=== PATIENT | female | born 1975 | race Hispanic/Latino ===

== ENCOUNTER 2016-08-28 14:32 | Observation (INO) | payer OTHER ==
[2016-08-28 14:55] VITALS: BMI 20.7
[2016-08-28] MEDS ORDERED: Sodium Chloride 0.9% 1,000 ML IV STA (15:04)
[2016-08-28] MEDS ORDERED: Morphine 4 mg/ml ISec IVP STA (15:05)
--- NOTE | 2016-08-28 15:08 | ED PDOC ---
"Arrival/HPI - General Historian: Patient <Zenon Marks - Last Filed: 09/04/16 14:52> <Brina Acosta - Last Filed: 09/07/16 11:08> - General Time Seen by Provider: 08/28/16 14:55 - History of Present Illness Narrative History of Present Illness (Text): 08/28/16 15:00 41 year old female, pmh including chronic pancreatitis/cholecystitis ( cholecystotomy), allergic to macrolids/levaquin/contrast/nsaid, chronic smoker, psychiatric history of drug abuse, complaining of epigastric and lt. upper quadrant pain for the past 2 days with nausea and vomiting. Pt. stated that it started from the epigastric region with lt. upper quadrant region, feels like her usual pancreatitis, associated with nausea and non-bilious/non-bloody vomiting, no chest pain or shortness of breath, no palpitation, no dizziness, no numbness or tingling, no other medical or psychological complaints. (Zenon Marks) Past Medical History - Provider Review Nursing Documentation Reviewed: Yes - Infectious Disease Hx of Infectious Diseases: None - Tetanus Immunization Tetanus Immunization: Unknown - Reproductive Menopause: No - Cardiac Hx Cardiac Disorders: No - Pulmonary Hx Bronchitis: Yes Hx Pneumonia: Yes - Neurological Hx Migraine: Yes Hx Seizures: Yes - HEENT Hx HEENT Disorder: No - Renal Hx Renal Disorder: Yes Hx Kidney Stones: Yes - Endocrine/Metabolic Hx Endocrine Disorders: Yes Hx Diabetes Mellitus Type 2: Yes - Hematological/Oncological Hx Anemia: Yes - Integumentary Hx Dermatological Disorder: Yes Hx Eczema: Yes - Musculoskeletal/Rheumatological Hx Arthritis: Yes Hx Fractures: Yes - Gastrointestinal Hx Pancreatitis: Yes - Genitourinary/Gynecological Hx Genitourinary Disorders: Yes Hx Urinary Tract Infection: Yes - Psychiatric Hx Anxiety: Yes Hx Substance Use: No - Surgical History Hx Appendectomy: Yes Hx Cholecystectomy: Yes - Anesthesia Hx Anesthesia: Yes Hx Anesthesia Reactions: No Hx Malignant Hyperthermia: No <Zenon Marks - Last Filed: 09/04/16 14:52> Family/Social History - Physician Review Nursing Documentation Reviewed: Yes Family/Social History: Unknown Family HX Smoking Status: Current Some Days Smoker Hx Alcohol Use: No Hx Substance Use: No <Zenon Marks - Last Filed: 09/04/16 14:52> Allergies/Home Meds <Marks,Zenon Q - Last Filed: 09/04/16 14:52> <KarlaTonnysulema - Last Filed: 09/07/16 11:08> Allergies/Adverse Reactions: Allergies clarithromycin [From Biaxin] Allergy (Verified 08/28/16 15:01) ANAPHYLAXIS Iodinated Contrast Media - Oral and [Iodinated Contrast Media - IV Dye] Allergy (Verified 08/28/16 15:01) ANAPHYLAXIS levofloxacin [From Levaquin] Allergy (Verified 08/28/16 15:01) ANAPHYLAXIS NSAIDS (Non-Steroidal Anti-Inflamma Allergy (Verified 08/28/16 15:01) ANAPHYLAXIS tizanidine HCl [From Zanaflex] Allergy (Verified 08/28/16 15:01) ANAPHYLAXIS Home Medications: Home Meds Medication Instructions Recorded Confirmed Morphine [MS Contin] 60 mg PO BID 08/28/16 08/28/16 Codeine/Butalbital/ASA/Caffein 1 tab PO Q4H PRN 08/30/16 08/30/16 [Fiorinal with Codeine #3 Cap] Hydromorphone HCl [Dilaudid] 8 mg PO Q4H PRN 08/30/16 08/30/16 LORazepam [Ativan] 1 mg PO TID 08/30/16 08/30/16 Pregabalin [Lyrica] 300 mg PO DAILY 08/30/16 08/30/16 Review of Systems - Review of Systems Constitutional: absent: Fatigue, Fevers Eyes: absent: Vision Changes ENT: absent: Hearing Changes Respiratory: absent: SOB, Cough, Sputum Cardiovascular: absent: Chest Pain, Palpitations Gastrointestinal: Abdominal Pain, Nausea, Vomiting. absent: Diarrhea Musculoskeletal: absent: Arthralgias, Back Pain Skin: absent: Rash, Pruritis, Skin Lesions Neurological: absent: Headache, Dizziness, Focal Weakness Endocrine: absent: Diaphoresis <Zenon Marks - Last Filed: 09/04/16 14:52> Physical Exam Vital Signs Reviewed: Yes Temperature: Afebrile Pulse: Regular Respiratory Rate: Normal Appearance: Positive for: Well-Appearing, Non-Toxic, Uncomfortable Pain Distress: Severe Mental Status: Positive for: Alert and Oriented X 3 - Systems Exam Head: Present: Atraumatic, Normocephalic Pupils: Present: PERRL Extroacular Muscles: Present: EOMI Conjunctiva: Present: Normal Mouth: Present: Moist Mucous Membranes Neck: Present: Normal Range of Motion Respiratory/Chest: Present: Clear to Auscultation, Good Air Exchange. No: Respiratory Distress, Accessory Muscle Use, Wheezes, Retracting, Rhonchi, Tachypneic Cardiovascular: Present: Regular Rate and Rhythm, Normal S1, S2. No: Murmurs Abdomen: Present: Tenderness (epigastric and LUQ tenderness, no flank discoloration. ), Normal Bowel Sounds. No: Distention, Peritoneal Signs Back: Present: Normal Inspection, CVA Tenderness (lt. cva) Upper Extremity: Present: Normal Inspection. No: Cyanosis, Edema Lower Extremity: Present: Normal Inspection. No: Edema Neurological: Present: GCS=15, Speech Normal, Motor Func Grossly Intact, Memory Normal Skin: Present: Warm, Dry, Normal Color. No: Rashes Lymphatic: No: Cervical Adenopathy Psychiatric: Present: Alert, Oriented x 3, Normal Insight, Normal Concentration <Zenon Marks - Last Filed: 09/04/16 14:52> Medical Decision Making - Lab Interpretations I have reviewed the lab results: Yes - RAD Interpretation Dairy Husbandman: Radiologist - EKG Interpretation Interpreted by ED Physician: Yes Type: 12 lead EKG <Zenon Marks - Last Filed: 09/04/16 14:52> <Brina Acosta - Last Filed: 09/07/16 11:08> ED Course and Treatment: 08/28/16 15:06 -labs/ua/lipase -CT abdomen and pelvis (allergic to IV and po contrast) -Chest x-ray -EKG -IVF/reglan/pepcid/morphine 4mg -Observe and reassess 08/28/16 18:40 -EKG: NSR @ 62 BPM, no ST elevation or depression, T wave inversion noted on the lead V2. -Chest x-ray show no active disease -CT abdomen and pelvis:no acute findings -Labs are non-significant except lipase 303 and Urinalysis show +UTI with lt. cva tenderness. -Pain limited relief with the morphine 4mg, then dilaudid 1mg IV ordered. -Pt. is unable to tolerate the po, will admit for the observation tonight with IV antibiotic 08/28/16 19:28 -I discussed the case with the night covering doctor for the hospitalist Dr. Spear and the resident, they will follow up the care for the patient. (Zenon Marks) - Lab Interpretations Lab Results: 08/28/16 18:00 08/28/16 18:00 Lab Results 08/28/16 18:00: Troponin I < 0.01 08/28/16 18:00: Sodium 139, Potassium 4.0, Chloride 106, Carbon Dioxide 21, Anion Gap 16, BUN 15, Creatinine 0.5, Est GFR ( Amer) > 60, Est GFR (Non- Af Amer) > 60, Random Glucose 75, Calcium 8.6, Total Bilirubin 0.9, AST 26, ALT 25, Alkaline Phosphatase 92, Total Protein 7.1, Albumin 4.1, Globulin 3.0, Albumin/Globulin Ratio 1.4, Lipase 303 H 08/28/16 18:00: WBC 4.2 L D, RBC 4.19, Hgb 12.2, Hct 35.7 L, MCV 85.2, MCH 29.1 , MCHC 34.2, RDW 14.6 H, Plt Count 173, MPV 10.1, Gran % 63.5, Lymph % (Auto) 28.0, [place] % (Auto) 7.8 H, Eos % (Auto) 0.2 L, Baso % (Auto) 0.5, Gran # 2.67, Lymph # 1.2, [place] # 0.3, Eos # 0.0, Baso # 0.02 08/28/16 15:00: Urine Color Yellow, Urine Appearance Clear, Urine pH 6.0, Ur Specific [place] >= 1.030, Urine Protein 30 H, Urine Glucose (UA) Negative, Urine Ketones >=80, Urine Blood Negative, Urine Nitrate Negative, Urine Bilirubin Moderate H, Urine Urobilinogen 1.0 H, Ur Leukocyte Esterase Small H, Urine RBC 0 - 2, Urine WBC 5 - 10, Ur Epithelial Cells Many, Amorphous Sediment Few, Urine Bacteria Many, Urine Other Uyeast, Urine HCG, Qual Negative - RAD Interpretation Radiology Orders: 08/28/16 15:04 ABD & PELVIS W/O PO OR IV CONT [CT] Stat 08/28/16 15:05 CHEST PORTABLE [RAD] Stat Chest x-ray: no significant interval changes. CT Abdomen and pelvis: ABDOMEN: Liver: Unremarkable. Gallbladder and bile ducts: There has been a cholecystectomy. No ductal dilation. Pancreas: Unremarkable. No ductal dilation. Spleen: Unremarkable. No splenomegaly. Adrenals: Unremarkable. No mass. Kidneys and ureters: Unremarkable. No obstructing stones. No hydronephrosis. Stomach and bowel: Colonic diverticula are present although there are no CT findings to suggest diverticulitis. No obstruction. Appendix: There has been an appendectomy. DELORES STEPHENSON | Preliminary Radiology Report STATION CHIEF (QA) DISCREPANCY? If there is a discrepancy between the preliminary and final interpretation, please notify [place] via [email or web address]. If you do not have access to our QA portal, call our QA team at [phone] CONFIDENTIALITY STATEMENT This report is intended only for the use of the referring physician, and only in accordance with law, If you received this in error, call [phone] Page 2 of 2 PELVIS: Bladder: Unremarkable. No stones. Reproductive: Unremarkable as visualized. ABDOMEN and PELVIS: Intraperitoneal space: Unremarkable. No free air. No significant fluid collection. Bones/joints: There is avascular necrosis of the left femoral head. No acute fracture. No dislocation. Soft tissues: Unremarkable. Vasculature: Unremarkable. No abdominal aortic aneurysm. Lymph nodes: Unremarkable. No enlarged lymph nodes. IMPRESSION: No acute findings. Thank you for allowing us to participate in the care of your patient. Dictated and Authenticated by: Rayshawn Bermudez MD 08/28/2016 5:43 PM Eastern Time ([place] & [place]) (Zenon Marks) - EKG Interpretation EKG Interpretation (Text): 08/28/16 17:13 EKG: NSR @ 62 BPM, no ST elevation or depression, T wave inversion noted on the lead V2. (Zenon Marks) - Medication Orders Current Medication Orders: Discontinued Medications Famotidine (Pepcid) 20 mg IVP STAT STA Stop: 08/28/16 15:05 Last Admin: 08/28/16 15:19 Dose: 20 mg Heparin Sodium (Porcine) (Heparin) 5,000 units SC Q12 BELLA PRN Reason: Protocol Last Admin: 08/31/16 10:43 Dose: 5,000 units Hydromorphone HCl (Dilaudid) 1 mg IVP STAT STA Stop: 08/28/16 18:03 Last Admin: 08/28/16 18:21 Dose: 1 mg Hydromorphone HCl (Dilaudid) 0.5 mg IVP Q6H PRN PRN Reason: Pain, severe (8-10) Last Admin: 08/30/16 10:34 Dose: 0.5 mg Re-Assess: [facility] Pain Assessment Document 08/30/16 11:34 KP (Rec: 08/30/16 12:23 [id number] Pain Reassessment Is this a pain reassessment? Yes Sleep Is patient sleeping during reassessment? No Presence of Pain Presence of Pain No Hydromorphone HCl (Dilaudid) 0.5 mg IVP Q4H PRN PRN Reason: Pain, severe (8-10) Last Admin: 08/30/16 14:35 Dose: 0.5 mg Re-Assess: [facility] Pain Assessment Document 08/30/16 15:35 KP (Rec: 08/30/16 16:36 [facility] [id number] Pain Reassessment Is this a pain reassessment? Yes Sleep Is patient sleeping during reassessment? No Presence of Pain Presence of Pain No Hydromorphone HCl (Dilaudid) 1 mg PO Q6 PRN PRN Reason: Pain, severe (8-10) Last Admin: 08/31/16 10:42 Dose: 1 mg Sodium Chloride (Sodium Chloride 0.9%) 1,000 mls @ 999 mls/hr IV .Q1H1M STA Stop: 08/28/16 16:04 Last Admin: 08/28/16 15:17 Dose: 999 mls/hr Ceftriaxone Sodium (Rocephin 1 Gram Ivpb) 1 gm in 100 mls @ 200 mls/hr IVPB STAT STA PRN Reason: Protocol Stop: 08/28/16 19:06 Last Admin: 08/28/16 18:50 Dose: 200 mls/hr Lactated Ringer's (Lactated Ringer's) 1,000 mls @ 150 mls/hr IV .Q6H40M [facility] Last Admin: 08/29/16 15:53 Dose: 150 mls/hr Ceftriaxone Sodium (Rocephin 1 Gram Ivpb) 1 gm in 100 mls @ 100 mls/hr IVPB DAILY BELLA PRN Reason: Protocol Last Admin: 08/30/16 09:20 Dose: 100 mls/hr Lactated Ringer's (Lactated Ringer's) 1,000 mls @ 75 mls/hr IV .[id number] [facility] Last Admin: 08/30/16 12:23 Dose: 75 mls/hr Lorazepam (Ativan) 2 mg IVP Q6H PRN; Protocol PRN Reason: Anxiety Last Admin: 08/31/16 08:22 Dose: 2 mg Re-Assess: Reassess Psych Meds Document 08/31/16 08:52 KRISTA (Rec: 08/31/16 10:39 AJ [id number]) Reassess Psych Med Effective Lorazepam (Ativan) 1 mg PO TID PRN; Protocol PRN Reason: Anxiety Last Admin: 08/31/16 13:36 Dose: 1 mg Metoclopramide HCl (Reglan) 10 mg IVP STAT STA Stop: 08/28/16 15:05 Last Admin: 08/28/16 15:19 Dose: 10 mg Morphine Sulfate (Morphine) 4 mg IVP STAT STA Stop: 08/28/16 15:06 Last Admin: 08/28/16 15:18 Dose: 4 mg Re-Assess: [facility] Pain Assessment Document 08/28/16 16:18 NORMA (Rec: 08/28/16 16:50 SZA [id number]) Pain Reassessment Is this a pain reassessment? Yes Morphine Sulfate (Morphine) 4 mg IVP Q4H PRN PRN Reason: Pain, severe (8-10) Last Admin: 08/29/16 13:12 Dose: 4 mg Morphine Sulfate (Morphine) 2 mg IVP STAT STA Stop: 08/30/16 01:50 Last Admin: 08/30/16 01:56 Dose: 2 mg Re-Assess: [facility] Pain Assessment Document 08/30/16 02:56 IMT (Rec: 08/30/16 05:14 IMT [id number]) Pain Reassessment Is this a pain reassessment? Yes Sleep Is patient sleeping during reassessment? Yes Morphine Sulfate (Morphine Extended Release Tab) 60 mg PO BID [facility] Last Admin: 08/30/16 17:50 Dose: 60 mg Morphine Sulfate (Morphine Extended Release Tab) 60 mg PO STAT STA Stop: 08/30/16 22:44 Last Admin: 08/30/16 22:52 Dose: 60 mg Nicotine (Nicoderm Cq) 1 patch TD DAILY [facility] Last Admin: 08/31/16 10:43 Dose: 1 patch Ondansetron HCl (Zofran Inj) 4 mg IVP Q4H PRN PRN Reason: Nausea/Vomiting Pantoprazole Sodium (Protonix Inj) 40 mg IVP Q12 [facility] Last Admin: 08/30/16 09:20 Dose: 40 mg Pantoprazole Sodium (Protonix Ec Tab) 40 mg PO 0730,1630 [facility] Last Admin: 08/31/16 08:22 Dose: 40 mg Potassium Chloride (K-Dur 20 Meq Er Tab) 40 meq PO ONCE ONE Stop: 08/30/16 09:38 Last Admin: 08/30/16 10:23 Dose: 40 meq Potassium Chloride (K-Dur 20 Meq Er Tab) 40 meq PO STAT STA Stop: 08/31/16 09:08 Last Admin: 08/31/16 10:42 Dose: 40 meq Pregabalin (Lyrica) 300 mg PO DAILY [facility] Last Admin: 08/31/16 10:43 Dose: 300 mg Zolpidem Tartrate (Ambien) 10 mg PO STAT STA PRN Reason: Protocol Stop: 08/30/16 22:43 Last Admin: 08/30/16 22:53 Dose: 10 mg - PA / BARBERING TEACHER / Resident Statement / has reviewed & agrees with the documentation as recorded. <Zenon Marks - Last Filed: 09/04/16 14:52> - PA / BARBERING TEACHER / Resident Statement / has reviewed & agrees with the documentation as recorded. / has examined the patient and agrees with the treatment plan. <Brina Acosta - Last Filed: 09/07/16 11:08> Disposition/Present on Arrival - Present on Arrival Any Indicators Present on Arrival: No History of DVT/PE: No History of Uncontrolled Diabetes: No Urinary Catheter: No History of Decub. Ulcer: No History Surgical Site Infection Following: None - Disposition Have Diagnosis and Disposition been Completed?: Yes Disposition Time: 18:41 Patient Plan: Admission, Observation <Zenon Marks - Last Filed: 09/04/16 14:52> <Brina Acosta - Last Filed: 09/07/16 11:08> - Disposition Diagnosis: Pyelonephritis, Pancreatitis, Nausea and vomiting Disposition: HOSPITALIZED Condition: STABLE"
[2016-08-28 15:38] LABS: URINE BILIRUBIN MODERATE (NEGATIVE); URINE BLOOD NEGATIVE (NEGATIVE); URINE GLUCOSE (UA) NEGATIVE (NEGATIVE); URINE KETONE >=80 mg/dL (NEGATIVE); URINE LEUKOCYTE ESTERASE SMALL Leu/uL (NEGATIVE); URINE PROTEIN 30 mg/dL (<30 mg/dL)
[2016-08-28 15:39] LABS: URINE APPEARANCE CLEAR (CLEAR); URINE COLOR YELLOW (YELLOW)
[2016-08-28 15:45] LABS: URINE AMORPHOUS SEDIMENT FEW; URINE BACTERIA MANY (NEG); URINE EPITHELIAL CELLS MANY /hpf (0-5); URINE RBC 0 - 2 /hpf (0-2)
--- NOTE | 2016-08-28 17:05 | RAD ---
HISTORY: lt. upper quadrant abdominal pain COMPARISON: 09/06/2015 FINDINGS: LUNGS: No focal airspace opacity. PLEURA: No significant pleural effusion identified, no pneumothorax apparent. CARDIOVASCULAR: Normal. OSSEOUS STRUCTURES: No significant abnormalities. VISUALIZED UPPER ABDOMEN: Normal. OTHER FINDINGS: Curvilinear metallic densities noted in the lower chest. IMPRESSION: No focal airspace opacity. No significant interval change.
[2016-08-28] MEDS ORDERED: HYDROmorphone 1 mg/ml ISec IVP STA (18:02)
[2016-08-28 18:13] LABS: ADD MANUAL DIFF? NO
[2016-08-28 18:25] LABS: BASO # 0.02 K/mm3 (0.0-2.0); BASO % 0.5 % (0.0-3.0); EOS % 0.2 % (1.5-5.0); GRAN # 2.67 (1.4-6.5); GRAN % 63.5 % (50.0-68.0); HEMATOCRIT 35.7 % (36.0-48.0); LYMPH # 1.2 (1.2-3.4); MEAN CELL VOLUME 85.2 fL (80.0-105.0); MEAN CORPUSCULAR HEMOGLOBIN 29.1 pg (25.0-35.0); MEAN CORPUSCULAR HGB CONC 34.2 g/dl (31.0-37.0); MEAN PLATELET VOLUME 10.1 fl (7.0-11.0); MONO # 0.3 (0.1-0.6); MONO % 7.8 % (1.0-6.0); PLATELET COUNT 173 10^3/uL (120.0-450.0); RED CELL DISTRIBUTION WIDTH 14.6 % (11.5-14.5); WHITE BLOOD COUNT 4.2 10^3/ul (4.5-11.0)
[2016-08-28 18:26] LABS: ALB/GLOB RATIO 1.4 (1.1-1.8); ALKALINE PHOSPHATASE 92 U/L (38-133); ALT/SGPT 25 U/L (7-56); AST/SGOT 26 U/L (15-39); BILIRUBIN,TOTAL 0.9 mg/dL (0.2-1.3); BLOOD UREA NITROGEN 15 mg/dL (7-21); CALCIUM 8.6 mg/dL (8.4-10.5); CARBON DIOXIDE 21 mmol/L (21-33); CHLORIDE 106 mmol/L (98-107); GFR AFRICAN-AMERICAN > 60; GLUCOSE,RANDOM 75 mg/dL (70-110); LIPASE 303 U/L (23-300); SODIUM 139 mmol/L (132-148); TOTAL PROTEIN 7.1 g/dL (5.8-8.3)
[2016-08-28] MEDS ORDERED: cefTRIAXone 1 gm 1 GM/100 ML BAG IVPB STA (18:37)
[2016-08-28] MEDS: Lactated Ringer's 1,000 ML IV SCH (20:30)
--- NOTE | 2016-08-28 21:03 | CP.PCM.HP ---
<Arron Clements - Last Filed: 08/28/16 21:22> History of Present Illness - History of Present Illness History of Present Illness: 41 y/o F with PMH of chronic pancreatitis and alcohol abuse presents to the ED for 2 day history of abdominal pain. Pt states pain started suddenly when she woke up at home 2 days ago. She states the pain is an 8/10 and is constant. She describes the pain as stabbing in nature. The pain radiates to her middle back. Pt also admits lower left abdominal pain that radiates around to her back. Pt also states during this time she has experienced multiple bouts of nausea and vomiting. Vomiting is nonbilious, nonbloody. Pt also admits to have several episodes of diarrhea, nonbloody throughout this time. Pt states she took her normal medication at home for the pain and symptoms, but it did not help. Pt admits to several pancreatic surgeries in the past due to having gallstone pancreatitis. Pt states she has not had any alcohol or tobacco use recently and has quit a long time ago. Admits to chest pain. Denies SOB, fever, chills, headaches, sick contacts, dizziness. PMH: Chronic pancreatitis, alcohol abuse Surgical Hx: Cholecystectomy, multiple pancreatic surgeries Family Hx: Unremarkable Social Hx: Former smoker, former alcohol abuser, denies illicit drug use. Allergies: Clarithromycin, IV contrast, Levaquin (Fluoroquinolones), NSAIDs, Tizanidine Medication: Ativan, Pancreatic enzymes, Morphine, Lyrica Present on Admission - Present on Admission Any Indicators Present on Admission: No Review of Systems - Constitutional Constitutional: absent: Chills, Fatigue, Fever - EENT Eyes: absent: Blurred Vision, Change in Vision Nose/Mouth/Throat: absent: Nasal Congestion, Nasal Discharge - Cardiovascular Cardiovascular: Chest Pain. absent: Irregular Heart Rhythm - Respiratory Respiratory: absent: Cough, Dyspnea - Gastrointestinal Gastrointestinal: Abdominal Pain, Diarrhea, Vomiting - Genitourinary Genitourinary: absent: Difficulty Urinating, Dysuria, Hematuria - Neurological Neurological: absent: Numbness, Syncope, Tingling - Hematologic/Lymphatic Hematologic: absent: Easy Bleeding, Easy Bruising Past Patient History - Infectious Disease Hx of Infectious Diseases: None - Tetanus Immunizations Tetanus Immunization: Unknown - Past Medical History & Family History Past Medical History?: Yes - Past Social History Smoking Status: Current Some Days Smoker - CARDIAC Hx Cardiac Disorders: No - PULMONARY Hx Bronchitis: Yes Hx Pneumonia: Yes - NEUROLOGICAL Hx Migraine: Yes Hx Seizures: Yes - HEENT Hx HEENT Problems: No - RENAL Hx Chronic Kidney Disease: Yes Hx Kidney Stones: Yes - ENDOCRINE/METABOLIC Hx Endocrine Disorders: Yes Hx Diabetes Mellitus Type 2: Yes - HEMATOLOGICAL/ONCOLOGICAL Hx Anemia: Yes - INTEGUMENTARY Hx Dermatological Problems: Yes Hx Eczema: Yes - MUSCULOSKELETAL/RHEUMATOLOGICAL Hx Arthritis: Yes Hx Fractures: Yes - GASTROINTESTINAL Hx Pancreatitis: Yes - GENITOURINARY/GYNECOLOGICAL Hx Genitourinary Disorders: Yes Hx Urinary Tract Infection: Yes - PSYCHIATRIC Hx Anxiety: Yes Hx Substance Use: No - SURGICAL HISTORY Hx Appendectomy: Yes Hx Cholecystectomy: Yes - ANESTHESIA Hx Anesthesia: Yes Hx Anesthesia Reactions: No Hx Malignant Hyperthermia: No Meds Allergies/Adverse Reactions: Allergies Allergy/AdvReac Type Severity Reaction Status Date / Time clarithromycin [From Biaxin] Allergy ANAPHYLAXIS Verified 08/28/16 15:01 Iodinated Contrast Media - Allergy ANAPHYLAXIS Verified 08/28/16 15:01 Oral and [Iodinated Contrast Media - IV Dye] levofloxacin [From Levaquin] Allergy ANAPHYLAXIS Verified 08/28/16 15:01 NSAIDS (Non-Steroidal Allergy ANAPHYLAXIS Verified 08/28/16 15:01 Anti-Inflamma tizanidine HCl Allergy ANAPHYLAXIS Verified 08/28/16 15:01 [From Zanaflex] Physical Exam - Constitutional Appears: Non-toxic, No Acute Distress - Head Exam Head Exam: ATRAUMATIC, NORMAL INSPECTION, NORMOCEPHALIC - Eye Exam Eye Exam: EOMI, Normal appearance - ENT Exam ENT Exam: Mucous Membranes Moist, Normal Exam - Neck Exam Neck exam: Positive for: Normal Inspection. Negative for: Lymphadenopathy - Respiratory Exam Respiratory Exam: Clear to Auscultation Bilateral, NORMAL BREATHING PATTERN. absent: Rhonchi, Wheezes - Cardiovascular Exam Cardiovascular Exam: RRR, +S1, +S2 - GI/Abdominal Exam GI & Abdominal Exam: Normal Bowel Sounds, Soft, Tenderness (Left lower quadrant , mild tenderness in epigastric region) - Extremities Exam Extremities exam: Positive for: normal inspection. Negative for: calf tenderness, pedal edema - Back Exam Back exam: CVA tenderness (L). absent: CVA tenderness (R) - Neurological Exam Neurological exam: Alert, CN II-XII Intact, Oriented x3 - Psychiatric Exam Psychiatric exam: Normal Affect, Normal Mood - Skin Skin Exam: Intact, Normal Color, Warm Results - Vital Signs Recent Vital Signs: Last Vital Signs Temp 98.8 F 08/28/16 14:53 Pulse 62 08/28/16 19:33 Resp 14 08/28/16 19:33 BP 145/90 08/28/16 19:33 Pulse Ox 99 08/28/16 19:33 - Labs Result Diagrams: 08/28/16 18:00 08/28/16 18:00 Assessment & Plan - Assessment and Plan (Free Text) Plan: 41 y/o F with PMH of chronic pancreatitis and alcohol abuse presents with acute on chronic pancreatitis and pyelonephritis. Pt received abdomen/pelvis CT in ED which showed no acute findings. Pt is allergic to IV contrast and is not able to be properly evaluated with abdominal CT with contrast. Pt will be started on aggressive fluid hydration and IV abx for pyelonephritis. Pt will have troponins trended x2 for mild complaint of chest pain. Pt will be admitted to med/surg 1. Acute on chronic pancreatitis NPO LR @ 150 cc/hr Morphine 4 mg q4h prn Hold pancreatic enzymes at this time as pt is NPO 2. Pyelopnephritis Rocephin 1 gm daily Monitor for worsening symptoms 3. Hx of tobacco abuse Counseled on cessation Nicotine patch 4. Hx of alcohol abuse Counseled on continued cessation Ativan prn 5. PPX Zofran Protonix Heparin Seen, reviewed, and discussed with attending Tyree, PGY-1 <Beatris WHEELER,Mac - Last Filed: 08/29/16 02:24> Results - Vital Signs Recent Vital Signs: Last Vital Signs Temp 98.0 F 08/28/16 22:47 Pulse 67 08/28/16 22:47 Resp 20 08/28/16 22:47 BP 145/88 08/28/16 22:47 Pulse Ox 98 08/28/16 21:00 - Labs Result Diagrams: 08/28/16 18:00 08/28/16 18:00 Attending/Attestation - Attestation I have personally seen and examined this patient.: Yes I have fully participated in the care of the patient.: Yes I have reviewed all pertinent clinical information: Yes Notes (Text): 08/29/16 02:01 -I agree with the above H&P completed by the resident physician with the following additional changes or modifications: The patient is a 41 year old woman with a history of chronic pancreatitis and chronic alcohol abuse who presents with several days of worsening epigastric abdominal pain with associated nausea and non-bloody, non-bilious vomiting. As a result, she's been unable to tolerate oral intake. She also reports watery, non-bloody diarrhea and some intermittent left flank pain during this time period. She denies dysuria, fevers, chills, chest pain, SOB, recent dietary changes or recent travel. Of note, the patient repeatedly denies any history of alcohol abuse as noted on multiple prior medical records. Her serum lipase is 303 (essentially the upper limit of normal). Because she is allergic to iodine, a CT-A/P with contrast couldn't be done to further evaluate for presence of acute pancreatitis. The differential diagnoses for her symptoms include: Acute Gastroenteritis vs Acute (on chronic) Pancreatitis. She will also be empirically treated with IV Ceftriaxone for pyelonephritis, given her mildly "dirty" UA and left flank tenderness. She will be kept NPO and on aggressive IVF's. While NPO, her pancreatic enzymes will be held. 08/29/16 02:20
[2016-08-28] MEDS: Morphine 4 mg/ml ISec IVP PRN (21:13)
[2016-08-29] MEDS: Morphine 4 mg/ml ISec IVP PRN ×3 (01:00→13:12)
[2016-08-29] MEDS: Lactated Ringer's 1,000 ML IV SCH ×4 (04:55→18:28)
[2016-08-29 08:26] LABS: ALB/GLOB RATIO 1.2 (1.1-1.8); ALKALINE PHOSPHATASE 80 U/L (38-133); ALT/SGPT 31 U/L (7-56); AST/SGOT 17 U/L (15-39); BILIRUBIN,TOTAL 0.5 mg/dL (0.2-1.3); BLOOD UREA NITROGEN 14 mg/dL (7-21); CALCIUM 8.3 mg/dL (8.4-10.5); CARBON DIOXIDE 23 mmol/L (21-33); CHLORIDE 106 mmol/L (98-107); CHOLESTEROL 232 mg/dL (130-200); GFR AFRICAN-AMERICAN > 60; GLUCOSE,RANDOM 78 mg/dL (70-110); POTASSIUM 3.5 mmol/L (3.6-5.0); SODIUM 138 mmol/L (132-148)
[2016-08-29 08:30] LABS: HEMATOCRIT 34.6 % (36.0-48.0); MEAN CELL VOLUME 86.1 fL (80.0-105.0); MEAN CORPUSCULAR HEMOGLOBIN 28.9 pg (25.0-35.0); MEAN CORPUSCULAR HGB CONC 33.5 g/dl (31.0-37.0); MEAN PLATELET VOLUME 10.3 fl (7.0-11.0); PLATELET COUNT 128 10^3/uL (120.0-450.0); RED CELL DISTRIBUTION WIDTH 14.3 % (11.5-14.5)
--- NOTE | 2016-08-29 08:31 | CT ---
PROCEDURE: CT Abdomen and Pelvis without contrast. HISTORY: epigastric and LUQ pain, allergic to contrast COMPARISON: CT from 10/11/2015. TECHNIQUE: Contiguous axial images of the abdomen and pelvis. No oral or IV contrast given. Coronal and Sagittal reformats generated. Please note that due to lack of intravenous and oral contrast, evaluation of soft tissue structures and bowel is limited. Radiation dose: Total exam DLP = 265.14 mGy-cm. This CT exam was performed using one or more of the following dose reduction techniques: Automated exposure control, adjustment of the mA and/or kV according to patient size, and/or use of iterative reconstruction technique. FINDINGS: LOWER THORAX: Lung bases are clear. Heart is not enlarged. There is no significant pericardial effusion. Coronary artery calcifications noted. LIVER: Unremarkable. No gross lesion or ductal dilatation. GALLBLADDER AND BILE DUCTS: Gallbladder not seen. Surgical clips seen in the gallbladder fossa. PANCREAS: Unremarkable. No mass. No ductal dilatation. SPLEEN: Splenomegaly. Spleen measures approximately 14.8 centimeters in craniocaudal dimension. ADRENALS: Mild diffuse thickening of both adrenal glands. KIDNEYS AND URETERS: Unremarkable. No stone or hydronephrosis. BLADDER: Urinary bladder is minimally distended limiting evaluation. REPRODUCTIVE: Please note that evaluation of gynecologic organs is not optimal on CT imaging. No large adnexal masses identified. APPENDIX: Appendix not identified however no right lower quadrant inflammatory changes noted. BOWEL: Evaluation of bowel is limited due to lack of IV or oral contrast. No bowel obstruction. Minimal diverticulosis without evidence of diverticulitis. Colon is near completely collapsed. PERITONEUM: Unremarkable. No fluid collection. No free air. LYMPH NODES: Unremarkable. No enlarged lymph nodes. VASCULATURE: Unremarkable. No aortic aneurysm. BONES: No acute fracture. Avascular necrosis left femoral head. OTHER FINDINGS: None. IMPRESSION: Suboptimally evaluated bowel however without evidence of obstruction. Splenomegaly. Avascular necrosis of the left femoral head. Please note that this report is in general agreement with the preliminary report provided by [facility].
[2016-08-29 08:36] LABS: TROPONIN I < 0.01 ng/mL
[2016-08-29 08:42] LABS: WHITE BLOOD COUNT 2.8 10^3/ul (4.5-11.0)
[2016-08-29] MEDS: cefTRIAXone 1 gm 1 GM/100 ML BAG IVPB SCH (09:19)
[2016-08-29 09:40] LABS: BASOPHIL 2 % (0.0-1.0); EOSINOPHIL 4 % (0.0-3.0); NEUTROPHIL 34 % (50.0-70.0); PLATELET ESTIMATE NORMAL (NORMAL)
--- NOTE | 2016-08-29 10:30 | CARD ---
APPROVED REPORT EKG Measurement Heart [id number] [id number] [id number] <Conclusion> Normal sinus rhythm Normal ECG No change
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
--- NOTE | 2016-08-29 15:41 | CP.PCM.PN ---
Subjective - Date & Time of Evaluation Date of Evaluation: 08/29/16 Time of Evaluation: 15:41 - Subjective Subjective: pt needs angiocath insertion. Objective - Vital Signs/Intake and Output Vital Signs (last 24 hours): Temp Pulse Resp BP Pulse Ox 97.6 F 57 L 18 139/75 97 08/29/16 08:00 08/29/16 08:00 08/29/16 08:00 08/29/16 08:00 08/29/16 08:00 Intake and Output: 08/29/16 08/29/16 06:59 18:59 Intake Total 1350 0 Balance 1350 0 - Medications Medications: Current Medications Heparin Sodium (Porcine) (Heparin) 5,000 units SC Q12 [facility] PRN Reason: Protocol Last Admin: 08/29/16 09:18 Dose: 5,000 units Hydromorphone HCl (Dilaudid) 0.5 mg IVP Q6H PRN PRN Reason: Pain, severe (8-10) Lactated Ringer's (Lactated Ringer's) 1,000 mls @ 150 mls/hr IV .Q6H40M [facility] Last Admin: 08/29/16 09:18 Dose: 150 mls/hr Ceftriaxone Sodium (Rocephin 1 Gram Ivpb) 1 gm in 100 mls @ 100 mls/hr IVPB DAILY [facility] PRN Reason: Protocol Last Admin: 08/29/16 09:19 Dose: 100 mls/hr Lorazepam (Ativan) 2 mg IVP Q6H PRN; Protocol PRN Reason: Anxiety Last Admin: 08/29/16 13:48 Dose: 2 mg Nicotine (Nicoderm Cq) 1 patch TD DAILY [facility] Last Admin: 08/29/16 09:26 Dose: 1 patch Ondansetron HCl (Zofran Inj) 4 mg IVP Q4H PRN PRN Reason: Nausea/Vomiting Pantoprazole Sodium (Protonix Inj) 40 mg IVP Q12 [facility] Last Admin: 08/29/16 09:18 Dose: 40 mg Pregabalin (Lyrica) 300 mg PO DAILY [facility] Last Admin: 08/29/16 09:20 Dose: 300 mg - Labs Labs: 08/29/16 07:30 08/29/16 07:30 Assessment and Plan - Assessment and Plan (Free Text) Assessment: 22 guage angiocath inserted in rt foot.
[2016-08-29] MEDS: HYDROmorphone 0.5 mg/0.5 ml ISec IVP PRN ×2 (15:53→22:24)
--- NOTE | 2016-08-29 22:07 | CP.PCM.PN ---
<Sara Jones - Last Filed: 08/30/16 09:36> Subjective - Date & Time of Evaluation Date of Evaluation: 08/29/16 Time of Evaluation: 08:20 - Subjective Subjective: Pt seen and evaluated at bedside. Pt vomited this AM, without blood. Afebrile overnight. Objective - Vital Signs/Intake and Output Vital Signs (last 24 hours): Temp Pulse Resp BP Pulse Ox 98.5 F 53 L 18 144/96 H 96 08/29/16 18:39 08/29/16 18:39 08/29/16 18:39 08/29/16 18:39 08/29/16 18:39 Intake and Output: 08/29/16 08/30/16 18:59 06:59 Intake Total 0 Balance 0 - Medications Medications: Current Medications Heparin Sodium (Porcine) (Heparin) 5,000 units SC Q12 [facility] PRN Reason: Protocol Last Admin: 08/29/16 09:18 Dose: 5,000 units Hydromorphone HCl (Dilaudid) 0.5 mg IVP Q6H PRN PRN Reason: Pain, severe (8-10) Last Admin: 08/29/16 15:53 Dose: 0.5 mg Ceftriaxone Sodium (Rocephin 1 Gram Ivpb) 1 gm in 100 mls @ 100 mls/hr IVPB DAILY [facility] PRN Reason: Protocol Last Admin: 08/29/16 09:19 Dose: 100 mls/hr Lactated Ringer's (Lactated Ringer's) 1,000 mls @ 75 mls/hr IV .[id number] [facility] Last Admin: 08/29/16 18:28 Dose: 75 mls/hr Lorazepam (Ativan) 2 mg IVP Q6H PRN; Protocol PRN Reason: Anxiety Last Admin: 08/29/16 19:17 Dose: 2 mg Nicotine (Nicoderm Cq) 1 patch TD DAILY [facility] Last Admin: 08/29/16 09:26 Dose: 1 patch Ondansetron HCl (Zofran Inj) 4 mg IVP Q4H PRN PRN Reason: Nausea/Vomiting Pantoprazole Sodium (Protonix Inj) 40 mg IVP Q12 [facility] Last Admin: 08/29/16 09:18 Dose: 40 mg Pregabalin (Lyrica) 300 mg PO DAILY [facility] Last Admin: 08/29/16 09:20 Dose: 300 mg - Labs Labs: 08/29/16 07:30 08/29/16 07:30 - Constitutional Appears: Non-toxic, No Acute Distress - Head Exam Head Exam: ATRAUMATIC, NORMOCEPHALIC - Eye Exam Eye Exam: EOMI, Normal appearance - Respiratory Exam Respiratory Exam: Clear to Ausculation Bilateral, NORMAL BREATHING PATTERN - Cardiovascular Exam Cardiovascular Exam: Bradycardia, +S1, +S2 - GI/Abdominal Exam GI & Abdominal Exam: Soft. absent: Tenderness - Exam External exam: absent: Ecchymosis, Erythema - Extremities Exam Extremities Exam: Normal Capillary Refill. absent: Tenderness - Back Exam Back Exam: CVA tenderness (L). absent: CVA tenderness (R) - Neurological Exam Neurological Exam: Alert, Awake - Skin Skin Exam: Intact, Normal Color Assessment and Plan - Assessment and Plan (Free Text) Plan: 41 y/o F with PMH of chronic pancreatitis and alcohol abuse presents with few days of worsening epigastric abdominal pain w/ non-bilious, non-bloody vomitng. Pt received abdomen/pelvis CT in ED which showed no acute findings. Admitted for abdominal pain and vomiting. Pt will be started on aggressive fluid hydration and IV abx for pyelonephritis. Pt will have troponins negative x2 for mild complaint of chest pain. Pt admitted to med/sur. Acute on chronic pancreatitis initial serum lipase is 303, upper limit of normal [facility] LR @ 75 cc/hr Morphine 4 mg q4h prn GI consult, help appreciated 2. Pyelopnephritis Rocephin 1 gm daily Monitor for worsening symptoms 3. Hx of tobacco abuse Counseled on cessation Nicotine patch 4. Hx of alcohol abuse Counseled on continued cessation Ativan prn 5. PPX Zofran Protonix Heparin Seen, reviewed, and discussed with attending Donovan, PGY-1 <Tiffany Smith - Last Filed: 08/30/16 13:50> Objective - Vital Signs/Intake and Output Vital Signs (last 24 hours): Temp Pulse Resp BP Pulse Ox 98.9 F 48 L 16 125/76 96 08/30/16 07:51 08/30/16 07:51 08/30/16 07:51 08/30/16 07:51 08/30/16 07:51 Intake and Output: 08/30/16 08/30/16 06:59 18:59 Intake Total 420 Balance 420 - Medications Medications: Current Medications Heparin Sodium (Porcine) (Heparin) 5,000 units SC Q12 [facility] PRN Reason: Protocol Last Admin: 08/30/16 09:21 Dose: 5,000 units Hydromorphone HCl (Dilaudid) 0.5 mg IVP Q4H PRN PRN Reason: Pain, severe (8-10) Lactated Ringer's (Lactated Ringer's) 1,000 mls @ 75 mls/hr IV .[id number] [facility] Last Admin: 08/30/16 12:23 Dose: 75 mls/hr Lorazepam (Ativan) 2 mg IVP Q6H PRN; Protocol PRN Reason: Anxiety Last Admin: 08/30/16 13:31 Dose: 2 mg Nicotine (Nicoderm Cq) 1 patch TD DAILY [facility] Last Admin: 08/30/16 09:20 Dose: 1 patch Ondansetron HCl (Zofran Inj) 4 mg IVP Q4H PRN PRN Reason: Nausea/Vomiting Pantoprazole Sodium (Protonix Ec Tab) 40 mg PO 0730,1630 [facility] Pregabalin (Lyrica) 300 mg PO DAILY [facility] Last Admin: 08/30/16 09:20 Dose: 300 mg - Labs Labs: 08/30/16 09:45 08/30/16 09:45 Attending/Attestation - Attestation I have personally seen and examined this patient.: Yes I have fully participated in the care of the patient.: Yes I have reviewed all pertinent clinical information, including history, physical exam and plan: Yes Notes (Text): 08/29/16 41 year old female with past medical history of chronic pancreatitis and chronic pain on opiates who presented with intractable abdominal pain with nausea and vomiting. Also complained of flank pain and dysuria. Lipase was mildly elevated; UA noted. She was started on antibiotics. Although CT abd/ pelvis is negative. Will begin to advance diet to liquids and advance as tolerated and limit narcotic use. GI evaluation was appreciated. Tiffany Smith MD Hospitalist.
[2016-08-30] MEDS ORDERED: Morphine 2 mg/ml ISec IVP STA (01:49)
[2016-08-30] MEDS: HYDROmorphone 0.5 mg/0.5 ml ISec IVP PRN ×2 (04:29→10:34)
[2016-08-30] MEDS: cefTRIAXone 1 gm 1 GM/100 ML BAG IVPB SCH (09:20)
[2016-08-30] MEDS ORDERED: Potassium Chloride 20 mEq ER Tab PO ONE (09:37)
[2016-08-30 10:15] LABS: HEMATOCRIT 37.9 % (36.0-48.0); MEAN CELL VOLUME 84.6 fL (80.0-105.0); MEAN CORPUSCULAR HEMOGLOBIN 28.8 pg (25.0-35.0); MEAN PLATELET VOLUME 10.5 fl (7.0-11.0); RED CELL DISTRIBUTION WIDTH 14.2 % (11.5-14.5); WHITE BLOOD COUNT 3.6 10^3/ul (4.5-11.0)
[2016-08-30 10:26] LABS: ALB/GLOB RATIO 1.2 (1.1-1.8); ALKALINE PHOSPHATASE 74 U/L (38-133); ALT/SGPT 27 U/L (7-56); AST/SGOT 23 U/L (15-39); BILIRUBIN,TOTAL 0.5 mg/dL (0.2-1.3); BLOOD UREA NITROGEN 5 mg/dL (7-21); CALCIUM 8.5 mg/dL (8.4-10.5); CARBON DIOXIDE 26 mmol/L (21-33); CHLORIDE 103 mmol/L (98-107); GFR AFRICAN-AMERICAN > 60; GLUCOSE,RANDOM 78 mg/dL (70-110); POTASSIUM 3.4 mmol/L (3.6-5.0); SODIUM 137 mmol/L (132-148); TOTAL PROTEIN 6.2 g/dL (5.8-8.3)
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
--- NOTE | 2016-08-30 12:09 | CP.PCM.PN ---
<Swapnil Barker - Last Filed: 08/30/16 12:12> Subjective - Date & Time of Evaluation Date of Evaluation: 08/30/16 Time of Evaluation: 07:30 - Subjective Subjective: Patient seen and examined this AM, resting comfortably in bed. Patient reports having had one bout of emesis yesterday night. Patient requesting specific dosages of pain medication as well as demanding specific frequencies. Patient requesting to be upgraded to regular diet. Patient complains of moderate epigastric pain. Denies fever/chills, headches, chest pain/SOB, dysuria. Patient reports having loose stools and passing flatus. Objective - Vital Signs/Intake and Output Vital Signs (last 24 hours): Temp Pulse Resp BP Pulse Ox 98.9 F 48 L 16 125/76 96 08/30/16 07:51 08/30/16 07:51 08/30/16 07:51 08/30/16 07:51 08/30/16 07:51 Intake and Output: 08/30/16 08/30/16 06:59 18:59 Intake Total 420 Balance 420 - Medications Medications: Current Medications Heparin Sodium (Porcine) (Heparin) 5,000 units SC Q12 [facility] PRN Reason: Protocol Last Admin: 08/30/16 09:21 Dose: 5,000 units Hydromorphone HCl (Dilaudid) 0.5 mg IVP Q6H PRN PRN Reason: Pain, severe (8-10) Last Admin: 08/30/16 10:34 Dose: 0.5 mg Ceftriaxone Sodium (Rocephin 1 Gram Ivpb) 1 gm in 100 mls @ 100 mls/hr IVPB DAILY [facility] PRN Reason: Protocol Last Admin: 08/30/16 09:20 Dose: 100 mls/hr Lactated Ringer's (Lactated Ringer's) 1,000 mls @ 75 mls/hr IV .[id number] [facility] Last Admin: 08/29/16 18:28 Dose: 75 mls/hr Lorazepam (Ativan) 2 mg IVP Q6H PRN; Protocol PRN Reason: Anxiety Last Admin: 08/30/16 07:25 Dose: 2 mg Nicotine (Nicoderm Cq) 1 patch TD DAILY [facility] Last Admin: 08/30/16 09:20 Dose: 1 patch Ondansetron HCl (Zofran Inj) 4 mg IVP Q4H PRN PRN Reason: Nausea/Vomiting Pantoprazole Sodium (Protonix Ec Tab) 40 mg PO 0730,1630 [facility] Pregabalin (Lyrica) 300 mg PO DAILY [facility] Last Admin: 08/30/16 09:20 Dose: 300 mg - Labs Labs: 08/30/16 09:45 08/30/16 09:45 - Constitutional Appears: No Acute Distress - Head Exam Head Exam: NORMOCEPHALIC - Eye Exam Eye Exam: Normal appearance - ENT Exam ENT Exam: Mucous Membranes Moist - Respiratory Exam Respiratory Exam: NORMAL BREATHING PATTERN - Cardiovascular Exam Cardiovascular Exam: +S1, +S2 - GI/Abdominal Exam GI & Abdominal Exam: Soft, Tenderness. absent: Distended, Firm, Guarding - Extremities Exam Extremities Exam: absent: Pedal Edema - Neurological Exam Neurological Exam: Alert, Awake, Oriented x3 - Psychiatric Exam Psychiatric exam: Normal Mood - Skin Skin Exam: Dry, Intact, Warm Assessment and Plan - Assessment and Plan (Free Text) Assessment: 41 y/o F with PMH of chronic pancreatitis and alcohol abuse presents with few days of worsening epigastric abdominal pain w/ non-bilious, non-bloody vomiting. Pt received abdomen/pelvis CT in ED which showed no acute findings. Admitted for abdominal pain and vomiting. . Pt admitted to med/sur. Acute on chronic pancreatitis initial serum lipase is 303, upper limit of normal low fat/low fiber diet as per GI recs LR @ 75 cc/hr Dilaudid 0.5 mg q4h prn GI consult, recs appreciated 2. Pyelopnephritis WBC normal Will D/c Rocephin 1 gm daily Urinalysis clear No urinary symptoms No acute findings on CT scan 3. Hx of tobacco abuse Counseled on cessation Nicotine patch 4. Hx of alcohol abuse Counseled on continued cessation Ativan prn 5. PPX Zofran Protonix PO Heparin Seen, reviewed, and discussed with attending <Tiffany Smith - Last Filed: 08/30/16 13:39> Objective - Vital Signs/Intake and Output Vital Signs (last 24 hours): Temp Pulse Resp BP Pulse Ox 98.9 F 48 L 16 125/76 96 08/30/16 07:51 08/30/16 07:51 08/30/16 07:51 08/30/16 07:51 08/30/16 07:51 Intake and Output: 08/30/16 08/30/16 06:59 18:59 Intake Total 420 Balance 420 - Medications Medications: Current Medications Heparin Sodium (Porcine) (Heparin) 5,000 units SC Q12 [facility] PRN Reason: Protocol Last Admin: 08/30/16 09:21 Dose: 5,000 units Hydromorphone HCl (Dilaudid) 0.5 mg IVP Q4H PRN PRN Reason: Pain, severe (8-10) Lactated Ringer's (Lactated Ringer's) 1,000 mls @ 75 mls/hr IV .[id number] [facility] Last Admin: 08/30/16 12:23 Dose: 75 mls/hr Lorazepam (Ativan) 2 mg IVP Q6H PRN; Protocol PRN Reason: Anxiety Last Admin: 08/30/16 13:31 Dose: 2 mg Nicotine (Nicoderm Cq) 1 patch TD DAILY [facility] Last Admin: 08/30/16 09:20 Dose: 1 patch Ondansetron HCl (Zofran Inj) 4 mg IVP Q4H PRN PRN Reason: Nausea/Vomiting Pantoprazole Sodium (Protonix Ec Tab) 40 mg PO 0730,1630 [facility] Pregabalin (Lyrica) 300 mg PO DAILY [facility] Last Admin: 08/30/16 09:20 Dose: 300 mg - Labs Labs: 08/30/16 09:45 08/30/16 09:45 Attending/Attestation - Attestation I have personally seen and examined this patient.: Yes I have fully participated in the care of the patient.: Yes I have reviewed all pertinent clinical information, including history, physical exam and plan: Yes Notes (Text): 08/29/16 41 year old female with past medical history of chronic pancreatitis and chronic pain on opiates who presented with intractable abdominal pain with nausea and vomiting. Also complained of flank pain and dysuria. Lipase was mildly elevated; UA noted. She was started on antibiotics. Although CT abd/ pelvis is negative. Will begin to advance diet to liquids and advance as tolerated and limit narcotic use. GI evaluation was appreciated. Tiffany Smith MD Hospitalist. <Kike WHEELER,Karis - Last Filed: 08/30/16 17:58> Objective - Vital Signs/Intake and Output Vital Signs (last 24 hours): Temp Pulse Resp BP Pulse Ox 98.9 F 48 L 16 125/76 96 08/30/16 07:51 08/30/16 07:51 08/30/16 07:51 08/30/16 07:51 08/30/16 07:51 Intake and Output: 08/30/16 08/30/16 06:59 18:59 Intake Total 420 240 Balance 420 240 - Medications Medications: Current Medications Heparin Sodium (Porcine) (Heparin) 5,000 units SC Q12 [facility] PRN Reason: Protocol Last Admin: 08/30/16 09:21 Dose: 5,000 units Lactated Ringer's (Lactated Ringer's) 1,000 mls @ 75 mls/hr IV .[id number] [facility] Last Admin: 08/30/16 12:23 Dose: 75 mls/hr Lorazepam (Ativan) 2 mg IVP Q6H PRN; Protocol PRN Reason: Anxiety Last Admin: 08/30/16 13:31 Dose: 2 mg Morphine Sulfate (Morphine Extended Release Tab) 60 mg PO BID [facility] Last Admin: 08/30/16 17:50 Dose: 60 mg Nicotine (Nicoderm Cq) 1 patch TD DAILY [facility] Last Admin: 08/30/16 09:20 Dose: 1 patch Ondansetron HCl (Zofran Inj) 4 mg IVP Q4H PRN PRN Reason: Nausea/Vomiting Pantoprazole Sodium (Protonix Ec Tab) 40 mg PO 0730,1630 [facility] Last Admin: 08/30/16 16:46 Dose: 40 mg Pregabalin (Lyrica) 300 mg PO DAILY [facility] Last Admin: 08/30/16 09:20 Dose: 300 mg - Labs Labs: 08/30/16 17:11 08/30/16 09:45 Attending/Attestation - Attestation Notes (Text): 41 y/o F with PMH of chronic pancreatitis and alcohol abuse presents with few days of worsening epigastric abdominal pain w/ non-bilious, non-bloody vomiting. Pt received abdomen/pelvis CT in ED which showed no acute findings.Patient is still c/o abdominal pain but abdominal examination is benign.She tolerated food with out any problem.She has history of drug abuse and like IV Narcotic.As she is tolerating diet, we will discontinue IV Pain medications. This afternoon, she started c/o melena.She is hemodynamically stable, Hemoglobin is table.We will repeat CBC, if serial hemoglobin is stable, she can be discharged home, 08/30/16 17:55
[2016-08-30] MEDS: Lactated Ringer's 1,000 ML IV SCH (12:23)
[2016-08-30] MEDS ORDERED: HYDROmorphone 0.5 mg/0.5 ml ISec IVP PRN (12:24)
[2016-08-30] MEDS: Pantoprazole 40 mg EC Tab PO SCH (16:46)
[2016-08-30 17:12] LABS: ADD MANUAL DIFF? NO
[2016-08-30 17:22] LABS: BASO # 0.03 K/mm3 (0.0-2.0); BASO % 0.9 % (0.0-3.0); EOS # 0.2 (0.0-0.7); EOS % 5.8 % (1.5-5.0); GRAN # 1.95 (1.4-6.5); GRAN % 56.1 % (50.0-68.0); HEMATOCRIT 38.2 % (36.0-48.0); LYMPH % 29.4 % (22.0-35.0); MEAN CELL VOLUME 84.3 fL (80.0-105.0); MEAN CORPUSCULAR HEMOGLOBIN 29.1 pg (25.0-35.0); MEAN CORPUSCULAR HGB CONC 34.6 g/dl (31.0-37.0); MEAN PLATELET VOLUME 10.6 fl (7.0-11.0); MONO # 0.3 (0.1-0.6); MONO % 7.8 % (1.0-6.0); PLATELET COUNT 136 10^3/uL (120.0-450.0); RED CELL DISTRIBUTION WIDTH 14.2 % (11.5-14.5); WHITE BLOOD COUNT 3.5 10^3/ul (4.5-11.0)
[2016-08-30] MEDS ORDERED: MORPHINE 60 MG PO SCH (18:00)
[2016-08-30] MEDS ORDERED: Morphine 30 mg SR Tab PO SCH (18:00)
--- NOTE | 2016-08-30 21:22 | CP.PCM.PN ---
Subjective - Date & Time of Evaluation Date of Evaluation: 08/30/16 Time of Evaluation: 21:21 - Subjective Subjective: Patient was seen at bedside several times . She has an issue about pain medications. Requests 8 mg dilaudid IV . States that she has been on lot of pain medications at home.Her primary physician prescribes her a lot of pain medications. It was verified by day time doctor and she was promised to give IV dilaudid. As per nursing staff her primary physician does not want to her have IV pain medications. Medical record was reviewed by me. There is an order for dilaudid 1 mg PO q6h prn pain by PMD. His note indicates that she should get dilaudid 0.5 mg PO q4h prn. Discussed with patient. Patient agreed for her to have Morphine ER 60 mg PO and Ambien 10 mg PO x 1. This 41 year old white woman was admitted with abdominal pain/back pain. Has PMH of chronic pancreatitis, alcohol abuse, cholecystectomy, multiple pancreatic surgeries. Objective - Vital Signs/Intake and Output Vital Signs (last 24 hours): Temp Pulse Resp BP Pulse Ox 98.4 F 77 20 132/91 H 96 08/30/16 16:00 08/30/16 16:00 08/30/16 16:00 08/30/16 16:00 08/30/16 16:00 Intake and Output: 08/30/16 08/31/16 18:59 06:59 Intake Total 240 Balance 240 - Medications Medications: Current Medications Heparin Sodium (Porcine) (Heparin) 5,000 units SC Q12 [facility] PRN Reason: Protocol Last Admin: 08/30/16 09:21 Dose: 5,000 units Hydromorphone HCl (Dilaudid) 1 mg PO Q6 PRN PRN Reason: Pain, severe (8-10) Last Admin: 08/30/16 20:38 Dose: 1 mg Lactated Ringer's (Lactated Ringer's) 1,000 mls @ 75 mls/hr IV .[id number] [facility] Last Admin: 08/30/16 12:23 Dose: 75 mls/hr Lorazepam (Ativan) 2 mg IVP Q6H PRN; Protocol PRN Reason: Anxiety Last Admin: 08/30/16 21:03 Dose: 2 mg Nicotine (Nicoderm Cq) 1 patch TD DAILY [facility] Last Admin: 08/30/16 09:20 Dose: 1 patch Ondansetron HCl (Zofran Inj) 4 mg IVP Q4H PRN PRN Reason: Nausea/Vomiting Pantoprazole Sodium (Protonix Ec Tab) 40 mg PO 0730,1630 [facility] Last Admin: 08/30/16 16:46 Dose: 40 mg Pregabalin (Lyrica) 300 mg PO DAILY [facility] Last Admin: 08/30/16 09:20 Dose: 300 mg - Labs Labs: 08/30/16 17:11 08/30/16 09:45 - Constitutional Appears: Well, No Acute Distress - Head Exam Head Exam: ATRAUMATIC, NORMAL INSPECTION, NORMOCEPHALIC - Eye Exam Eye Exam: Normal appearance - ENT Exam ENT Exam: Normal External Ear Exam - Neck Exam Neck Exam: Normal Inspection - Respiratory Exam Respiratory Exam: NORMAL BREATHING PATTERN - Cardiovascular Exam Cardiovascular Exam: absent: JVD - GI/Abdominal Exam GI & Abdominal Exam: absent: Distended - Rectal Exam Rectal Exam: Deferred - Extremities Exam Extremities Exam: Normal Inspection - Back Exam Back Exam: NORMAL INSPECTION - Neurological Exam Neurological Exam: Alert, Oriented x3 - Psychiatric Exam Psychiatric exam: Normal Affect, Normal Mood - Skin Skin Exam: Normal Color Assessment and Plan - Assessment and Plan (Free Text) Assessment: A/P:Abdominal pain. Back pain. Chronic pancreatitis. ETOH abuse. Adjustment insomnia. Morphine ER 60 mg PO x 1. Ambien 10 mg PO x 1.
[2016-08-30] MEDS ORDERED: Morphine 30 mg SR Tab PO STA (22:43)
[2016-08-30 22:53] LABS: HEMATOCRIT 40.1 % (36.0-48.0); MEAN CELL VOLUME 86.1 fL (80.0-105.0); MEAN CORPUSCULAR HEMOGLOBIN 29.8 pg (25.0-35.0); MEAN CORPUSCULAR HGB CONC 34.7 g/dl (31.0-37.0); RED CELL DISTRIBUTION WIDTH 14.6 % (11.5-14.5)
[2016-08-31] MEDS: Pantoprazole 40 mg EC Tab PO SCH (08:22)
[2016-08-31 08:32] LABS: HEMATOCRIT 34.2 % (36.0-48.0); MEAN CELL VOLUME 85.5 fL (80.0-105.0); MEAN CORPUSCULAR HEMOGLOBIN 29.3 pg (25.0-35.0); MEAN CORPUSCULAR HGB CONC 34.2 g/dl (31.0-37.0); RED CELL DISTRIBUTION WIDTH 14.5 % (11.5-14.5); WHITE BLOOD COUNT 3.3 10^3/ul (4.5-11.0)
[2016-08-31 08:33] LABS: ALB/GLOB RATIO 1.1 (1.1-1.8); ALKALINE PHOSPHATASE 70 U/L (38-133); ALT/SGPT 26 U/L (7-56); AST/SGOT 24 U/L (15-39); BILIRUBIN,TOTAL 0.3 mg/dL (0.2-1.3); BLOOD UREA NITROGEN 5 mg/dL (7-21); CALCIUM 8.3 mg/dL (8.4-10.5); CARBON DIOXIDE 28 mmol/L (21-33); CHLORIDE 106 mmol/L (98-107); GFR AFRICAN-AMERICAN > 60; GLUCOSE,RANDOM 123 mg/dL (70-110); POTASSIUM 3.5 mmol/L (3.6-5.0); SODIUM 142 mmol/L (132-148); TOTAL PROTEIN 5.7 g/dL (5.8-8.3)
[2016-08-31 09:04] VITALS: BP 114/77; PULSE 20; RESP 78; TEMP 98; O2SAT 20
[2016-08-31] MEDS ORDERED: Potassium Chloride 20 mEq ER Tab PO STA (09:07)
--- NOTE | 2016-08-31 09:08 | CP.PCM.DIS ---
<Swapnil Barker - Last Filed: 08/31/16 12:44> Provider - Provider Date of Admission: 08/28/16 19:42 Attending physician: Karis Stokes MD Primary care physician: NO PRIMARY CARE PROVIDER Consults: Gastroenterology Time Spent in preparation of Discharge (in minutes): 25 Hospital Course - Lab Results Lab Results: Most Recent Lab Values WBC 3.3 10^3/ul (4.5-11.0) L 08/31/16 08:00 RBC 4.00 10^6/uL (3.5-6.1) 08/31/16 08:00 Hgb 11.7 gm/dL (12.0-16.0) L 08/31/16 08:00 Hct 34.2 % (36.0-48.0) L 08/31/16 08:00 MCV 85.5 fL (80.0-105.0) 08/31/16 08:00 MCH 29.3 pg (25.0-35.0) 08/31/16 08:00 MCHC 34.2 g/dl (31.0-37.0) 08/31/16 08:00 RDW 14.5 % (11.5-14.5) 08/31/16 08:00 Plt Count 122 10^3/uL (120.0-450.0) 08/31/16 08:00 MPV 10.0 fl (7.0-11.0) 08/31/16 08:00 Gran % 56.1 % (50.0-68.0) 08/30/16 17:11 Lymph % (Auto) 29.4 % (22.0-35.0) 08/30/16 17:11 [place] % (Auto) 7.8 % (1.0-6.0) H 08/30/16 17:11 Eos % (Auto) 5.8 % (1.5-5.0) H 08/30/16 17:11 Baso % (Auto) 0.9 % (0.0-3.0) 08/30/16 17:11 Gran # 1.95 (1.4-6.5) 08/30/16 17:11 Lymph # 1.0 (1.2-3.4) L 08/30/16 17:11 [place] # 0.3 (0.1-0.6) 08/30/16 17:11 Eos # 0.2 (0.0-0.7) 08/30/16 17:11 Baso # 0.03 K/mm3 (0.0-2.0) 08/30/16 17:11 Neutrophils % (Manual) 34 % (50.0-70.0) L 08/29/16 07:30 Lymphocytes % (Manual) 50 % (22.0-35.0) H 08/29/16 07:30 Monocytes % (Manual) 13 % (1.0-6.0) H 08/29/16 07:30 Eosinophils % (Manual) 4 % (0.0-3.0) H 08/29/16 07:30 Basophils % (Manual) 2 % (0.0-1.0) H 08/29/16 07:30 Platelet Evaluation Normal (NORMAL) 08/29/16 07:30 Sodium 142 mmol/L (132-148) 08/31/16 08:00 Potassium 3.5 mmol/L (3.6-5.0) L 08/31/16 08:00 Chloride 106 mmol/L (98-107) 08/31/16 08:00 Carbon Dioxide 28 mmol/L (21-33) 08/31/16 08:00 Anion Gap 12 (10-20) 08/31/16 08:00 BUN 5 mg/dL (7-21) L 08/31/16 08:00 Creatinine 0.6 mg/dL (0.5-1.4) 08/31/16 08:00 Est GFR ( Amer) > 60 08/31/16 08:00 Est GFR (Non-Af Amer) > 60 08/31/16 08:00 Random Glucose 123 mg/dL (70-110) H 08/31/16 08:00 Calcium 8.3 mg/dL (8.4-10.5) L 08/31/16 08:00 Total Bilirubin 0.3 mg/dL (0.2-1.3) 08/31/16 08:00 AST 24 U/L (15-39) 08/31/16 08:00 ALT 26 U/L (7-56) 08/31/16 08:00 Alkaline Phosphatase 70 U/L (38-133) 08/31/16 08:00 Troponin I < 0.01 ng/mL 08/29/16 07:30 Total Protein 5.7 g/dL (5.8-8.3) L 08/31/16 08:00 Albumin 3.0 g/dL (3.0-4.8) 08/31/16 08:00 Globulin 2.7 gm/dL 08/31/16 08:00 Albumin/Globulin Ratio 1.1 (1.1-1.8) 08/31/16 08:00 Triglycerides 201 mg/dL (35-160) H 08/29/16 07:30 Cholesterol 232 mg/dL (130-200) H 08/29/16 07:30 LDL Cholesterol Direct 164 mg/dL (0-129) H 08/29/16 07:30 HDL Cholesterol 42 mg/dL (29-60) 08/29/16 07:30 Lipase 303 U/L (23-300) H 08/28/16 18:00 Urine Color Yellow (YELLOW) 08/28/16 15:00 Urine Appearance Clear (CLEAR) 08/28/16 15:00 Urine pH 6.0 (4.7-8.0) 08/28/16 15:00 Ur Specific [place] >= 1.030 (1.005-1.035) 08/28/16 15:00 Urine Protein 30 mg/dL (<30 mg/dL) H 08/28/16 15:00 Urine Glucose (UA) Negative mg/dL (NEGATIVE) 08/28/16 15:00 Urine Ketones >=80 mg/dL (NEGATIVE) 08/28/16 15:00 Urine Blood Negative (NEGATIVE) 08/28/16 15:00 Urine Nitrate Negative (NEGATIVE) 08/28/16 15:00 Urine Bilirubin Moderate (NEGATIVE) H 08/28/16 15:00 Urine Urobilinogen 1.0 E.U./dL (<1 E.U./dL) H 08/28/16 15:00 Ur Leukocyte Esterase Small Chloe/uL (NEGATIVE) H 08/28/16 15:00 Urine RBC 0 - 2 /hpf (0-2) 08/28/16 15:00 Urine WBC 5 - 10 /hpf (0-6) 08/28/16 15:00 Ur Epithelial Cells Many /hpf (0-5) 08/28/16 15:00 Amorphous Sediment Few 08/28/16 15:00 Urine Bacteria Many (NEG) 08/28/16 15:00 Urine Other Uyeast 08/28/16 15:00 Urine HCG, Qual Negative (NEGATIVE) 08/28/16 15:00 Alcohol, Quantitative < 10 mg/dL (0-10) 08/29/16 08:30 - Hospital Course Hospital Course: 08/28: 41F with PMH of chronic pancreatitis and alcohol abuse presents to the ED for 2 day history of abdominal pain. Pt states pain started suddenly when she woke up at home 2 days ago. She states the pain is an 8/10 and is constant. She describes the pain as stabbing in nature. The pain radiates to her middle back. Pt also admits lower left abdominal pain that radiates around to her back. Pt also states during this time she has experienced multiple bouts of nausea and vomiting. Vomiting is nonbilious, nonbloody. Pt also admits to have several episodes of diarrhea, nonbloody throughout this time. Pt states she took her normal medication at home for the pain and symptoms, but it did not help. Pt admits to several pancreatic surgeries in the past due to having gallstone pancreatitis. Pt states she has not had any alcohol or tobacco use recently and has quit a long time ago. Admits to chest pain. Denies SOB, fever, chills, headaches, sick contacts, dizziness. 08/29: Gastroenterology was consulted. Stated there was no evidence of pancreatitis as both lipase and CT scan were unremarkable. Patient demonstrating drug seeking behavior. GI recommended patient be placed on protonix 40mg daily along with supportive care and advance diet as tolerated. 08/30: Patient reports having had one bout of emesis over night. Patient requesting specific dosages of pain medication as well as demanding specific frequencies. Patient requesting to be upgraded to regular diet. Patient complains of moderate epigastric pain. Denies fever/chills, headches, chest pain /SOB, dysuria. Patient reports having loose stools and passing flatus. During afternoon rounds patient was complaining of "tarry diarrhea" which was not witness by nursing staff. Patient becoming aggressive and demanding pain medication. Repeat CBC and vitals were ordered, and both were within normal range. GI recommend patient be on a low fiber/low fat diet. 08/31: Patient is stable as per nursing she is tolerating PO diet. At time of examination patient was requesting to be given 8-16mg of dilaudid. Also asking for Ativan and getting aggressive with her demands. Patient's vitals are stable. Will be discharged home today. No evidence of active bleeding. Patient will go home with PPI therapgy, Protonix 40mg daily. Discharge Exam - Head Exam Head Exam: NORMOCEPHALIC - Eye Exam Eye Exam: Normal appearance - ENT Exam ENT Exam: Mucous Membranes Moist - Respiratory Exam Respiratory Exam: NORMAL BREATHING PATTERN - Cardiovascular Exam Cardiovascular Exam: +S1, +S2. absent: Tachycardia - GI/Abdominal Exam GI & Abdominal Exam: Normal Bowel Sounds, Soft. absent: Distended, Firm, Guarding, Rebound, Rigid - Neurological Exam Neurological exam: Alert, Oriented x3 - Psychiatric Exam Psychiatric exam: Normal Mood - Skin Skin Exam: Dry, Warm Discharge Plan - Discharge Medications Prescriptions: Pantoprazole [Protonix EC Tab] 40 mg PO DAILY #30 ect - Follow Up Plan Condition: STABLE Disposition: AGAINST MEDICAL ADVICE Instructions: Pancreatitis (DC), Pneumococcal Vaccine for Adults (GEN), Low Fat Diet (DC), Non-pharmacological Pain Management Therapies for Adults (GEN), Chronic Pain (DC) Additional Instructions: Follow up with your primary care doctor in 5 days Follow up and make appointment with turbine blade assembler in 5-7 days. Referrals: PCP,NO [Primary Care Provider] - <Karis Stokes MD - Last Filed: 08/31/16 16:28> Provider - Provider Date of Admission: 08/28/16 19:42 Attending physician: Karis Stokes MD Primary care physician: NO PRIMARY CARE PROVIDER Time Spent in preparation of Discharge (in minutes): 30 Hospital Course - Lab Results Lab Results: Most Recent Lab Values WBC 3.3 10^3/ul (4.5-11.0) L 08/31/16 08:00 RBC 4.00 10^6/uL (3.5-6.1) 08/31/16 08:00 Hgb 11.7 gm/dL (12.0-16.0) L 08/31/16 08:00 Hct 34.2 % (36.0-48.0) L 08/31/16 08:00 MCV 85.5 fL (80.0-105.0) 08/31/16 08:00 MCH 29.3 pg (25.0-35.0) 08/31/16 08:00 MCHC 34.2 g/dl (31.0-37.0) 08/31/16 08:00 RDW 14.5 % (11.5-14.5) 08/31/16 08:00 Plt Count 122 10^3/uL (120.0-450.0) 08/31/16 08:00 MPV 10.0 fl (7.0-11.0) 08/31/16 08:00 Gran % 56.1 % (50.0-68.0) 08/30/16 17:11 Lymph % (Auto) 29.4 % (22.0-35.0) 08/30/16 17:11 [place] % (Auto) 7.8 % (1.0-6.0) H 08/30/16 17:11 Eos % (Auto) 5.8 % (1.5-5.0) H 08/30/16 17:11 Baso % (Auto) 0.9 % (0.0-3.0) 08/30/16 17:11 Gran # 1.95 (1.4-6.5) 08/30/16 17:11 Lymph # 1.0 (1.2-3.4) L 08/30/16 17:11 [place] # 0.3 (0.1-0.6) 08/30/16 17:11 Eos # 0.2 (0.0-0.7) 08/30/16 17:11 Baso # 0.03 K/mm3 (0.0-2.0) 08/30/16 17:11 Neutrophils % (Manual) 34 % (50.0-70.0) L 08/29/16 07:30 Lymphocytes % (Manual) 50 % (22.0-35.0) H 08/29/16 07:30 Monocytes % (Manual) 13 % (1.0-6.0) H 08/29/16 07:30 Eosinophils % (Manual) 4 % (0.0-3.0) H 08/29/16 07:30 Basophils % (Manual) 2 % (0.0-1.0) H 08/29/16 07:30 Platelet Evaluation Normal (NORMAL) 08/29/16 07:30 Sodium 142 mmol/L (132-148) 08/31/16 08:00 Potassium 3.5 mmol/L (3.6-5.0) L 08/31/16 08:00 Chloride 106 mmol/L (98-107) 08/31/16 08:00 Carbon Dioxide 28 mmol/L (21-33) 08/31/16 08:00 Anion Gap 12 (10-20) 08/31/16 08:00 BUN 5 mg/dL (7-21) L 08/31/16 08:00 Creatinine 0.6 mg/dL (0.5-1.4) 08/31/16 08:00 Est GFR ( Amer) > 60 08/31/16 08:00 Est GFR (Non-Af Amer) > 60 08/31/16 08:00 Random Glucose 123 mg/dL (70-110) H 08/31/16 08:00 Calcium 8.3 mg/dL (8.4-10.5) L 08/31/16 08:00 Total Bilirubin 0.3 mg/dL (0.2-1.3) 08/31/16 08:00 AST 24 U/L (15-39) 08/31/16 08:00 ALT 26 U/L (7-56) 08/31/16 08:00 Alkaline Phosphatase 70 U/L (38-133) 08/31/16 08:00 Troponin I < 0.01 ng/mL 08/29/16 07:30 Total Protein 5.7 g/dL (5.8-8.3) L 08/31/16 08:00 Albumin 3.0 g/dL (3.0-4.8) 08/31/16 08:00 Globulin 2.7 gm/dL 08/31/16 08:00 Albumin/Globulin Ratio 1.1 (1.1-1.8) 08/31/16 08:00 Triglycerides 201 mg/dL (35-160) H 08/29/16 07:30 Cholesterol 232 mg/dL (130-200) H 08/29/16 07:30 LDL Cholesterol Direct 164 mg/dL (0-129) H 08/29/16 07:30 HDL Cholesterol 42 mg/dL (29-60) 08/29/16 07:30 Lipase 303 U/L (23-300) H 08/28/16 18:00 Urine Color Yellow (YELLOW) 08/28/16 15:00 Urine Appearance Clear (CLEAR) 08/28/16 15:00 Urine pH 6.0 (4.7-8.0) 08/28/16 15:00 Ur Specific [place] >= 1.030 (1.005-1.035) 08/28/16 15:00 Urine Protein 30 mg/dL (<30 mg/dL) H 08/28/16 15:00 Urine Glucose (UA) Negative mg/dL (NEGATIVE) 08/28/16 15:00 Urine Ketones >=80 mg/dL (NEGATIVE) 08/28/16 15:00 Urine Blood Negative (NEGATIVE) 08/28/16 15:00 Urine Nitrate Negative (NEGATIVE) 08/28/16 15:00 Urine Bilirubin Moderate (NEGATIVE) H 08/28/16 15:00 Urine Urobilinogen 1.0 E.U./dL (<1 E.U./dL) H 08/28/16 15:00 Ur Leukocyte Esterase Small Chloe/uL (NEGATIVE) H 08/28/16 15:00 Urine RBC 0 - 2 /hpf (0-2) 08/28/16 15:00 Urine WBC 5 - 10 /hpf (0-6) 08/28/16 15:00 Ur Epithelial Cells Many /hpf (0-5) 08/28/16 15:00 Amorphous Sediment Few 08/28/16 15:00 Urine Bacteria Many (NEG) 08/28/16 15:00 Urine Other Uyeast 08/28/16 15:00 Urine HCG, Qual Negative (NEGATIVE) 08/28/16 15:00 Alcohol, Quantitative < 10 mg/dL (0-10) 08/29/16 08:30 Attending/Attestation - Attestation I have personally seen and examined this patient.: Yes I have fully participated in the care of the patient.: Yes I have reviewed all pertinent clinical information, including history, physical exam and plan: Yes Notes (Text): 08/31/16 16:19 Patient was seen and examined with medical care manager .Agreed with resident assessment and plan. 41 year old female with PMH of chronic pancreatitis drug abuse ,chronic pain syndrome on opiates who presented with intractable abdominal pain with nausea and vomiting. Also complained of flank pain and dysuria. Urine cultures were negative.UA was negative for UTI.She was afebrile.Antibiotics were discontinued. Lipase was mildly elevated, CT abd/pelvis was negative.Patient was seen in consultation with GI.Her diet was advanced.She is tolerating diet with out any issue since yesterday.She has history of Narcotic abuse and was requesting high dose of IV hydromorphone, despite she was lying comfortably with out any pain.She gave history of melena, patient was kept over night for monitoring.Hemoglobin remain stable at base line.She remained stable hemodynamically and was eating regular food.She was discharged home on PPI and was advised to follow up with GI. The issue of chronic opioid use was discussed in detail with her. Management plan was discussed in detail with patient Education was provided.
== END 2016-08-31 17:20 | disposition home or self-care (01) ==
LOC: ED 14:32 → ERH 19:42 → 5RSO 20:45
PROVIDERS: ADMIT Internal Medicine; ATTEND Internal Medicine
DX: K86.1 Other chronic pancreatitis (principal); R10.9 Unspecified abdominal pain; R19.7 Diarrhea, unspecified; R07.9 Chest pain, unspecified; G89.4 Chronic pain syndrome; F11.10 Opioid abuse, uncomplicated; M54.2 Cervicalgia; M54.9 Dorsalgia, unspecified; Z76.5 Malingerer [conscious simulation]; R30.0 Dysuria; F10.10 Alcohol abuse, uncomplicated; Z79.891 Long term (current) use of opiate analgesic; Z87.11 Personal history of peptic ulcer disease; Z90.49 Acquired absence of other specified parts of digestive tract; Z87.891 Personal history of nicotine dependence
CPT/HCPCS: 36415; 71010; 74176; 80053; 80061; 80320; 81001; 83690; 84484; 84703; 85007; 85025; 85027; 93005; 96361; 96365; 96366; 96372; 96375; 96376; 99285; C9113; G0378; J0696; J1170; J1644; J2060; J2270; J2765; J7040; J7120

== ENCOUNTER 2016-12-30 07:39 | Observation (INO) | payer OTHER ==
[2016-12-30 07:40] VITALS: BMI 20.7
[2016-12-30 08:15] VITALS: TEMP 98.7
[2016-12-30] MEDS ORDERED: Morphine 30 mg SR Tab PO STA (08:35)
--- NOTE | 2016-12-30 08:46 | ED PDOC ---
Arrival/HPI - General Chief Complaint: Lower Extremity Problem/Injury Time Seen by Provider: 12/30/16 07:45 Historian: Patient - History of Present Illness Narrative History of Present Illness (Text): 12/30/16 08:43 A 41 year old female, whose past medical history chronic back pain, fibromyalgia , pancreatitis, and drug abuse, presents to the emergency department for body swelling in her lower extremities extending to her thorax, which began about 2 weeks ago. The patient states she is swollen about 3 times her normal size and has discomfort due to the swelling. She also notes mild intermittent chest pain , which began about 5 days ago and shortness of breath, which began about 2 days ago. The patient denies any fever, nausea, cough, headaches, or any other complaints at this time. Time/Duration: > week (x 2 weeks ) Symptom Onset: Gradual Symptom Course: Unchanged Activities at Onset: Light Context: Home Past Medical History - Provider Review Nursing Documentation Reviewed: Yes - Infectious Disease Hx of Infectious Diseases: None - Tetanus Immunization Tetanus Immunization: Unknown - Cardiac Hx Cardiac Disorders: No - Pulmonary Hx Respiratory Disorders: Yes Hx Bronchitis: Yes Hx Pneumonia: Yes - Neurological Hx Neurological Disorder: Yes Hx Migraine: Yes Hx Seizures: Yes - HEENT Hx HEENT Disorder: No - Renal Hx Renal Disorder: Yes Hx Kidney Stones: Yes - Endocrine/Metabolic Hx Endocrine Disorders: Yes - Hematological/Oncological Hx Blood Disorders: Yes Hx Anemia: Yes - Integumentary Hx Dermatological Disorder: Yes Hx Eczema: Yes - Musculoskeletal/Rheumatological Hx Musculoskeletal Disorders: Yes Hx Arthritis: Yes Hx Back Pain: Yes Hx Fractures: Yes - Gastrointestinal Hx Gastrointestinal Disorders: Yes Hx Pancreatitis: Yes - Genitourinary/Gynecological Hx Genitourinary Disorders: Yes Hx Urinary Tract Infection: Yes - Psychiatric Hx Psychophysiologic Disorder: Yes Hx Anxiety: Yes Hx Depression: Yes Hx Substance Use: No - Surgical History Hx Appendectomy: Yes Hx Cholecystectomy: Yes Other/Comment: pancreas - Anesthesia Hx Anesthesia: Yes Hx Anesthesia Reactions: No Hx Malignant Hyperthermia: No Family/Social History - Physician Review Nursing Documentation Reviewed: Yes Family/Social History: No Known Family HX Smoking Status: Current Some Days Smoker Hx Alcohol Use: No Hx Substance Use: No Allergies/Home Meds Allergies/Adverse Reactions: Allergies clarithromycin [From Biaxin] Allergy (Verified 12/30/16 08:14) ANAPHYLAXIS Iodinated Contrast- Oral and IV Dye [Iodinated Contrast Media - IV Dye] Allergy (Verified 12/30/16 08:14) ANAPHYLAXIS levofloxacin [From Levaquin] Allergy (Verified 12/30/16 08:14) ANAPHYLAXIS NSAIDS (Non-Steroidal Anti-Inflamma Allergy (Verified 12/30/16 08:14) ANAPHYLAXIS shellfish derived Allergy (Verified 12/30/16 08:14) ANAPHYLAXIS tizanidine HCl [From Zanaflex] Allergy (Verified 12/30/16 08:14) ANAPHYLAXIS Home Medications: Home Meds Medication Instructions Recorded Confirmed QUEtiapine [SEROquel] 200 mg PO BID 12/30/16 12/30/16 clonazePAM [Klonopin] 1 mg PO TID 12/30/16 12/30/16 Review of Systems - Physician Review All systems were reviewed & negative as marked: Yes - Review of Systems Constitutional: absent: Fevers Respiratory: absent: Cough Gastrointestinal: absent: Nausea Neurological: absent: Headache Physical Exam - Physical Exam Narrative Physical Exam (Text): Constitutional: No acute distress. Head: Normocephalic. Atraumatic. Eyes: PERRL. ENT: Moist mucous membranes. Neck: Supple. Cardiovascular: Regular rate. Chest: No tenderness. Respiratory: Clear to auscultation bilaterally. No crackles. GI: Soft. Nontender. Nondistended. Back: No CVA tenderness. Musculoskeletal: Pitting edema bilaterally. DP plus 2+ bilaterally. Skin: No rash. Neurologic: Alert, no focal deficit. Vital Signs Reviewed: Yes Vital Signs Temp Pulse Resp BP Pulse Ox 12/30/16 10:23 89 18 128/76 100 12/30/16 08:15 98.7 F 93 H 16 125/75 97 Temperature: Afebrile Blood Pressure: Normal Pulse: Tachycardic Respiratory Rate: Normal Appearance: Positive for: Well-Appearing, Non-Toxic, Comfortable Pain Distress: None Mental Status: Positive for: Alert and Oriented X 3 Medical Decision Making ED Course and Treatment: Impression: 41 y/o F p/w peripheral edema in no acute distress. Differential Diagnosis included but are not limited to: CHF, venous insufficiency, renal disease, hepatic disease. Exam not consistent with cellulitis. Plan: -- EKG -- Chest X-Ray -- Labs -- Morphine -- Urinalysis -- Reassess and disposition Prior Visits: Notes and results from previous visits were reviewed. The patient was last seen in the emergency department on 08/28/16 for abdominal pain. - Lab Interpretations Lab Results: 12/30/16 08:35 Lab Results 12/30/16 08:35: Urine Color Light yellow, Urine Appearance Slight-cloudy, Urine pH 6.0, Ur Specific [place] 1.025, Urine Protein Negative, Urine Glucose (UA) Negative, Urine Ketones Negative, Urine Blood Trace-intact H, Urine Nitrate Negative, Urine Bilirubin Negative, Urine Urobilinogen 0.2, Ur Leukocyte Esterase Trace H, Urine RBC 0 - 2, Urine WBC 1 - 3, Ur Epithelial Cells Many, Amorphous Sediment Few, Urine Bacteria Many, Urine HCG, Qual Negative 12/30/16 08:35: WBC 4.0 L D, RBC 3.98, Hgb 10.8 L, Hct 33.1 L, MCV 83.2, MCH 27.1, MCHC 32.6, RDW 17.6 H, Plt Count 168, MPV 10.6, Gran % 57.2, Lymph % (Auto ) 20.3 L, Lares % (Auto) 13.6 H, Eos % (Auto) 8.7 H, Baso % (Auto) 0.2, Gran # 2.31, Lymph # 0.8 L, Lares # 0.6, Eos # 0.4, Baso # 0.01 - RAD Interpretation Radiology Orders: 12/30/16 08:35 CHEST TWO VIEWS (PA/LAT) [RAD] Stat - Medication Orders Current Medication Orders: Discontinued Medications Morphine Sulfate (Morphine Extended Release Tab) 30 mg PO STAT STA Stop: 12/30/16 08:36 Last Admin: 12/30/16 09:09 Dose: 30 mg Morphine Sulfate (Morphine) 4 mg IM STAT STA Stop: 12/30/16 10:31 Last Admin: 12/30/16 10:45 Dose: 4 mg ED OBSERVATION Discharge: Yes Date of observation admission: 12/30/16 Time of observation admission: 10:30 - Observation admission statement Patient is being placed in observation because:: poor vascular access - Goals of Observation Goals of observation are:: complete ED work up - Progress Note Progress Note: IV access was attempted multiple times by RN and lab without success. I performed an arterial draw at R wrist at the time of observation start. Will observe in ED pending full ED work up. 12/30/16 11:34 Labs unremarkle. PT/albumin normal. No protein on UA. Negative proBNP. CXR shows no pulmonary edema. Patient will require further outpatient work up for peripheral edema. Instructed to return to ED immediately for worsening dyspnea, vomiting, or any other problem. - Scribe Statement The provider has reviewed the documentation as recorded by the Alyssiaibchris Clement Provider Scribe Attestation: All medical record entries made by the Scribe were at my direction and personally dictated by me. I have reviewed the chart and agree that the record accurately reflects my personal performance of the history, physical exam, medical decision making, and the department course for this patient. I have also personally directed, reviewed, and agree with the discharge instructions and disposition. Disposition/Present on Arrival - Present on Arrival Any Indicators Present on Arrival: No History of DVT/PE: No History of Uncontrolled Diabetes: No Urinary Catheter: No History of Decub. Ulcer: No History Surgical Site Infection Following: None - Disposition Have Diagnosis and Disposition been Completed?: Yes Diagnosis: Peripheral edema Disposition: HOME/ ROUTINE Disposition Time: 10:30 Patient Plan: Discharge Condition: STABLE
[2016-12-30 09:14] LABS: BASO # 0.01 K/mm3 (0.0-2.0); BASO % 0.2 % (0.0-3.0); EOS # 0.4 (0.0-0.7); EOS % 8.7 % (1.5-5.0); GRAN # 2.31 (1.4-6.5); GRAN % 57.2 % (50.0-68.0); HEMATOCRIT 33.1 % (36.0-48.0); LYMPH # 0.8 (1.2-3.4); LYMPH % 20.3 % (22.0-35.0); MEAN CELL VOLUME 83.2 fl (80.0-105.0); MEAN CORPUSCULAR HEMOGLOBIN 27.1 pg (25.0-35.0); MEAN CORPUSCULAR HGB CONC 32.6 g/dl (31.0-37.0); MEAN PLATELET VOLUME 10.6 fl (7.0-11.0); MONO # 0.6 (0.1-0.6); MONO % 13.6 % (1.0-6.0); RED CELL DISTRIBUTION WIDTH 17.6 % (11.5-14.5)
[2016-12-30 09:15] LABS: URINE BILIRUBIN NEGATIVE (NEGATIVE); URINE BLOOD TRACE-INTACT (NEGATIVE); URINE GLUCOSE (UA) NEGATIVE (NEGATIVE); URINE KETONE NEGATIVE (NEGATIVE); URINE LEUKOCYTE ESTERASE TRACE Leu/uL (NEGATIVE); URINE PROTEIN NEGATIVE mg/dL (<30 mg/dL); URINE UROBILINOGEN 0.2 E.U./dL (<1 E.U./dL)
[2016-12-30 09:17] LABS: URINE COLOR LIGHT YELLOW (YELLOW)
[2016-12-30 09:18] LABS: URINE APPEARANCE SLIGHT-CLOUDY (CLEAR)
[2016-12-30 09:36] LABS: URINE AMORPHOUS SEDIMENT FEW; URINE BACTERIA MANY (NEG); URINE EPITHELIAL CELLS MANY /hpf (0-5); URINE RBC 0 - 2 /hpf (0-2)
[2016-12-30] MEDS ORDERED: Morphine 4 mg/ml ISec IM STA (10:30)
[2016-12-30 10:48] LABS: ALB/GLOB RATIO 1.3 (1.1-1.8); ALKALINE PHOSPHATASE 189 U/L (38-126); ALT/SGPT 65 U/L (7-56); AST/SGOT 40 U/L (14-36); BILIRUBIN,TOTAL 0.7 mg/dL (0.2-1.3); BLOOD UREA NITROGEN 10 mg/dL (7-21); CALCIUM 9.1 mg/dL (8.4-10.5); CARBON DIOXIDE 24 mmol/L (21-33); CHLORIDE 107 mmol/L (98-107); GFR AFRICAN-AMERICAN > 60; GLUCOSE,RANDOM 92 mg/dL (70-110); POTASSIUM 3.9 mmol/L (3.6-5.0); SODIUM 140 mmol/L (132-148); TOTAL PROTEIN 6.4 g/dL (5.8-8.3)
[2016-12-30 10:52] LABS: INR 0.96 (0.93-1.08); PARTIAL THROMBOPLASTIN TIME 28.2 Seconds (23.7-30.8)
[2016-12-30 11:00] LABS: TROPONIN I < 0.01 ng/mL
[2016-12-30 12:21] VITALS: BP 103/74; PULSE 95; RESP 16; O2SAT 97
--- NOTE | 2016-12-30 13:19 | RAD ---
HISTORY: peripheral edema COMPARISON: 08/28/2016 TECHNIQUE: Chest PA and lateral FINDINGS: LUNGS: No active pulmonary disease. PLEURA: No significant pleural effusion identified. No pneumothorax apparent. CARDIOVASCULAR: Normal. OSSEOUS STRUCTURES: No significant abnormalities. VISUALIZED UPPER ABDOMEN: Normal. OTHER FINDINGS: None. IMPRESSION: No active disease.
--- NOTE | 2016-12-30 14:13 | CARD ---
APPROVED REPORT EKG Measurement Heart [id number] <Conclusion> Normal sinus rhythm Normal ECG
== END 2016-12-30 11:36 | disposition home or self-care (01) ==
LOC: ED 07:39 → EROBSV 10:30
PROVIDERS: ADMIT Student in an Organized Health Care Education/Training Program; ATTEND Student in an Organized Health Care Education/Training Program
DX: R60.0 Localized edema (principal); M79.7 Fibromyalgia
CPT/HCPCS: 71020; 80053; 81001; 82550; 83880; 84484; 84703; 85025; 85610; 85730; 87086; 93005; 96372; 99283; G0378; J2270

== ENCOUNTER 2017-01-05 23:00 | Observation (INO) | payer OTHER ==
[2017-01-05 23:01] VITALS: BMI 20.7
[2017-01-05] MEDS ORDERED: Morphine 2 mg/ml ISec IVP STA (23:40)
--- NOTE | 2017-01-05 23:41 | ED PDOC ---
Arrival/HPI - General Chief Complaint: Abdominal Pain Time Seen by Provider: 01/05/17 23:10 Historian: Patient - History of Present Illness Narrative History of Present Illness (Text): 01/05/17 23:39 Maci Gama is a 41 year old female, whose past medical history includes chronic pancreatitis, cholecystectomy, fibromyalgia, drug abuse, and alcohol abuse, who presents to the ED complaining of LUQ pain for 1 1/2 days. Patient reports associated abdominal bloating, nausea, vomiting, and diarrhea. Patient denies any recent alcohol consumption. Patient denies any chest pain, shortness of breath, fever, chills, headache, dizziness, or any other complaints. Time/Duration: < week (1 1/2 days) Symptom Onset: Gradual Symptom Course: Unchanged Activities at Onset: Light Past Medical History - Provider Review Nursing Documentation Reviewed: Yes - Infectious Disease Hx of Infectious Diseases: None - Tetanus Immunization Tetanus Immunization: Unknown - Cardiac Hx Cardiac Disorders: No - Pulmonary Hx Bronchitis: Yes Hx Pneumonia: Yes - Neurological Hx Migraine: Yes Hx Seizures: Yes - HEENT Hx HEENT Disorder: No - Renal Hx Renal Disorder: Yes Hx Kidney Stones: Yes - Endocrine/Metabolic Hx Endocrine Disorders: Yes - Hematological/Oncological Hx Anemia: Yes - Integumentary Hx Dermatological Disorder: Yes Hx Eczema: Yes - Musculoskeletal/Rheumatological Hx Arthritis: Yes Hx Fractures: Yes - Gastrointestinal Hx Gastrointestinal Ulcer: Yes Hx Pancreatitis: Yes - Genitourinary/Gynecological Hx Genitourinary Disorders: Yes Hx Urinary Tract Infection: Yes - Psychiatric Hx Anxiety: Yes Hx Depression: Yes Hx Substance Use: No - Surgical History Hx Appendectomy: Yes Hx Cholecystectomy: Yes - Anesthesia Hx Anesthesia: Yes Hx Anesthesia Reactions: No Hx Malignant Hyperthermia: No Family/Social History - Physician Review Nursing Documentation Reviewed: Yes Family/Social History: Unknown Family HX Smoking Status: Current Some Days Smoker Hx Alcohol Use: No Hx Substance Use: No Allergies/Home Meds Allergies/Adverse Reactions: Allergies clarithromycin [From Biaxin] Allergy (Verified 01/05/17 23:26) ANAPHYLAXIS Iodinated Contrast- Oral and IV Dye [Iodinated Contrast Media - IV Dye] Allergy (Verified 01/05/17 23:26) ANAPHYLAXIS levofloxacin [From Levaquin] Allergy (Verified 01/05/17 23:26) ANAPHYLAXIS NSAIDS (Non-Steroidal Anti-Inflamma Allergy (Verified 01/05/17 23:26) ANAPHYLAXIS shellfish derived Allergy (Verified 01/05/17 23:26) ANAPHYLAXIS tizanidine HCl [From Zanaflex] Allergy (Verified 01/05/17 23:26) ANAPHYLAXIS Home Medications: Home Meds Medication Instructions Recorded Confirmed QUEtiapine [SEROquel] 200 mg PO BID 12/30/16 01/05/17 clonazePAM [Klonopin] 1 mg PO TID 12/30/16 01/05/17 Review of Systems - Physician Review All systems were reviewed & negative as marked: Yes - Review of Systems Constitutional: Normal. absent: Fevers Eyes: Normal ENT: Normal Respiratory: Normal. absent: SOB, Cough Cardiovascular: Normal. absent: Chest Pain Gastrointestinal: Abdominal Pain, Diarrhea, Nausea, Vomiting, Other (+abdominal bloating) Genitourinary Female: Normal. absent: Dysuria, Frequency, Hematuria, Urine Output Changes Musculoskeletal: Normal. absent: Back Pain, Neck Pain Skin: Normal. absent: Rash Neurological: Normal. absent: Headache, Dizziness Endocrine: Normal Hemo/Lymphatic: Normal Psychiatric: Normal Physical Exam Vital Signs Reviewed: Yes Vital Signs Temp Pulse Resp BP Pulse Ox 01/06/17 05:37 700 H 18 110/65 99 01/06/17 02:55 77 16 92/46 L 96 01/05/17 23:13 97.9 F 96 H 18 128/74 96 Temperature: Afebrile Blood Pressure: Normal Pulse: Regular Respiratory Rate: Normal Appearance: Positive for: Well-Appearing, Non-Toxic, Comfortable Pain Distress: None Mental Status: Positive for: Alert and Oriented X 3 - Systems Exam Head: Present: Atraumatic, Normocephalic Pupils: Present: PERRL Extroacular Muscles: Present: EOMI Conjunctiva: Present: Normal Mouth: Present: Moist Mucous Membranes Neck: Present: Normal Range of Motion Respiratory/Chest: Present: Clear to Auscultation, Good Air Exchange. No: Respiratory Distress, Accessory Muscle Use Cardiovascular: Present: Regular Rate and Rhythm, Normal S1, S2. No: Murmurs Abdomen: Present: Tenderness (Tenderness to LUQ), Normal Bowel Sounds. No: Distention, Peritoneal Signs Back: Present: Normal Inspection Upper Extremity: Present: Normal Inspection. No: Cyanosis, Edema Lower Extremity: Present: Normal Inspection. No: Edema Neurological: Present: GCS=15, CN II-XII Intact, Speech Normal Skin: Present: Warm, Dry, Normal Color. No: Rashes Psychiatric: Present: Alert, Oriented x 3, Normal Insight, Normal Concentration Medical Decision Making ED Course and Treatment: 01/05/17 23:39 Impression: 41 year old female c/o LUQ pain, nausea, vomiting, and diarrhea for 1.5 days. Plan: -- Labs, lipase, alcohol level -- IV fluids -- Zofran -- Pepcid -- Morphine -- Reassess and disposition Progress Notes: 01/06/17 02:14 Reviewed radiology, CXR shows no acute processes. 01/06/17 03:[address] Abdomen and Pelvis, shows: There is bibasilar platelike atelectasis. Cholecystectomy clips are present. There appears to be intrahepatic duct dilation likely secondary to cholecystectomy however more prominent than on prior.Recommend correlation with laboratory values. The spleen is again seen to be prominent. An adjacent splenule is noted. The kidneys and pancreas appear grossly normal on this non-contrast study. No perinephric stranding. No hydronephrosis. No obstructing calculi. The colon is distended with stool consistent with mild constipation. Appendectomy. 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 IMPRESSION: Mild constipation. Mild intrahepatic biliary duct dilation as discussed above. 01/06/17 04:[address] Dailey, medical coding specialist plastic tubing insulation supervisor, who is aware and agrees with plan. Case discussed with Dr. Chinchilla, house physician, who is aware and agrees with plan. Accepts pt in to hospitalist service. Pt will go to [facility] observation for intractable abdominal pain. - Lab Interpretations Lab Results: 01/06/17 00:25 01/06/17 00:25 Lab Results 01/06/17 02:30: Urine Color Yellow, Urine Appearance Cloudy, Urine pH 6.0, Ur Specific [place] 1.020, Urine Protein Negative, Urine Glucose (UA) Negative, Urine Ketones Negative, Urine Blood Negative, Urine Nitrate Negative, Urine Bilirubin Negative, Urine Urobilinogen 1.0 H, Ur Leukocyte Esterase Small H, Urine RBC 0 - 2, Urine WBC 1 - 3, Ur Epithelial Cells Many, Urine Bacteria Many 01/06/17 00:25: WBC 4.8, RBC 3.92, Hgb 10.6 L, Hct 32.4 L, MCV 82.7, MCH 27.0, MCHC 32.7, RDW 16.9 H, Plt Count 225, MPV 10.4 01/06/17 00:25: Alcohol, Quantitative < 10 01/06/17 00:25: Sodium 138, Potassium 4.0, Chloride 102, Carbon Dioxide 25, Anion Gap 15, BUN 12, Creatinine 0.6, Est GFR ( Amer) > 60, Est GFR (Non- Af Amer) > 60, Random Glucose 101, Calcium 9.0, Total Bilirubin 0.6, AST 42 H, ALT 41, Alkaline Phosphatase 168 H, Total Protein 7.0, Albumin 4.0, Globulin 3.0 , Albumin/Globulin Ratio 1.3, Lipase 72 01/06/17 00:25: PT 10.7, INR 0.99, APTT 27.6 I have reviewed the lab results: Yes - RAD Interpretation Radiology Orders: 01/05/17 23:40 CHEST PORTABLE [RAD] Stat 01/06/17 02:17 ABD & PELVIS W/O PO OR IV CONT [CT] Stat Financial Assistant: ED Physician, Radiologist - Medication Orders Current Medication Orders: Docusate Sodium (Colace) 100 mg PO DAILY [facility] Heparin Sodium (Porcine) (Heparin) 5,000 units SC Q12 BELLA PRN Reason: Protocol Sodium Chloride (Sodium Chloride 0.9%) 1,000 mls @ 100 mls/hr IV .Q10H BELLA Lactated Ringer's (Lactated Ringer's) 1,000 mls @ 100 mls/hr IV .Q10H BELLA Ceftriaxone Sodium (Rocephin 1 Gram Ivpb) 1 gm in 100 mls @ 100 mls/hr IVPB DAILY [facility] PRN Reason: Protocol Morphine Sulfate (Morphine) 2 mg IVP Q4H PRN PRN Reason: Pain, moderate (4-7) Ondansetron HCl (Zofran Inj) 4 mg IVP Q4H PRN PRN Reason: Nausea/Vomiting Pantoprazole Sodium (Protonix Inj) 40 mg IVP DAILY [facility] Discontinued Medications Famotidine (Pepcid) 20 mg IVP STAT STA Stop: 01/05/17 23:41 Last Admin: 01/06/17 00:37 Dose: 20 mg IVP Administration Document 01/06/17 00:37 SC (Rec: 01/06/17 00:37 [id number]) Charges for Administration # of IVP Administrations 1 Morphine Sulfate (Morphine) 2 mg IVP STAT STA Stop: 01/05/17 23:41 Last Admin: 01/06/17 00:37 Dose: 2 mg MAR Pain Assessment Document 01/06/17 00:37 SC (Rec: 01/06/17 00:37 [id number]) Pain Reassessment Is this a pain reassessment? No Sleep Is patient sleeping during reassessment? No Presence of Pain Presence of Pain Yes Pain Scale Used Pain Scale Used Numeric Location Pain Location Body Site Abdomen Back Description Intensity of Pain at present 10 IVP Administration Document 01/06/17 00:37 SC (Rec: 01/06/17 00:37 [id number]) Charges for Administration # of IVP Administrations 1 Morphine Sulfate (Morphine) 2 mg IVP STAT STA Stop: 01/06/17 02:19 Last Admin: 01/06/17 02:23 Dose: 2 mg MAR Pain Assessment Document 01/06/17 02:23 SC (Rec: 01/06/17 02:24 [id number]) Pain Reassessment Is this a pain reassessment? Yes Presence of Pain Presence of Pain Yes Pain Scale Used Pain Scale Used Numeric Location Pain Location Body Site Abdomen Back Description Description Constant Intensity of Pain at present 7 IVP Administration Document 01/06/17 02:23 SC (Rec: 01/06/17 02:24 [id number]) Charges for Administration # of IVP Administrations 2 Ondansetron HCl (Zofran Inj) 4 mg IVP ONCE ONE Stop: 01/05/17 23:41 Last Admin: 01/06/17 00:37 Dose: 4 mg IVP Administration Document 01/06/17 00:37 SC (Rec: 01/06/17 00:37 [id number]) Charges for Administration # of IVP Administrations 1 - Scribe Statement The provider has reviewed the documentation as recorded by the Scribchris Tucker All medical record entries made by the Scribe were at my direction and personally dictated by me. I have reviewed the chart and agree that the record accurately reflects my personal performance of the history, physical exam, medical decision making, and the department course for this patient. I have also personally directed, reviewed, and agree with the discharge instructions and disposition. Disposition/Present on Arrival - Present on Arrival Any Indicators Present on Arrival: No History of DVT/PE: No History of Uncontrolled Diabetes: No Urinary Catheter: No History of Decub. Ulcer: No History Surgical Site Infection Following: None - Disposition Have Diagnosis and Disposition been Completed?: Yes Diagnosis: Intractable abdominal pain Disposition: HOSPITALIZED Disposition Time: 04:28 Patient Plan: Observation Patient Problems: Current Active Problems Problem Status Onset Intractable abdominal pain Acute Condition: STABLE
[2017-01-05] MEDS ORDERED: Sodium Chloride 0.9% 1,000 ML IV SCH (23:45)
[2017-01-06 00:45] LABS: ALB/GLOB RATIO 1.3 (1.1-1.8); ALKALINE PHOSPHATASE 168 U/L (38-126); ALT/SGPT 41 U/L (7-56); AST/SGOT 42 U/L (14-36); BILIRUBIN,TOTAL 0.6 mg/dL (0.2-1.3); BLOOD UREA NITROGEN 12 mg/dL (7-21); CARBON DIOXIDE 25 mmol/L (21-33); CHLORIDE 102 mmol/L (98-107); GFR AFRICAN-AMERICAN > 60; GLUCOSE,RANDOM 101 mg/dL (70-110); LIPASE 72 U/L (23-300); SODIUM 138 mmol/L (132-148)
[2017-01-06 00:47] LABS: HEMATOCRIT 32.4 % (36.0-48.0); MEAN CELL VOLUME 82.7 fl (80.0-105.0); MEAN CORPUSCULAR HGB CONC 32.7 g/dl (31.0-37.0); MEAN PLATELET VOLUME 10.4 fl (7.0-11.0); RED CELL DISTRIBUTION WIDTH 16.9 % (11.5-14.5); WHITE BLOOD COUNT 4.8 10^3/ul (4.5-11.0)
[2017-01-06 00:49] LABS: INR 0.99 (0.93-1.08); PARTIAL THROMBOPLASTIN TIME 27.6 Seconds (23.7-30.8)
[2017-01-06] MEDS ORDERED: Morphine 2 mg/ml ISec IVP STA (02:18)
[2017-01-06 02:42] LABS: URINE BILIRUBIN NEGATIVE (NEGATIVE); URINE BLOOD NEGATIVE (NEGATIVE); URINE GLUCOSE (UA) NEGATIVE (NEGATIVE); URINE KETONE NEGATIVE (NEGATIVE); URINE LEUKOCYTE ESTERASE SMALL Leu/uL (NEGATIVE); URINE PROTEIN NEGATIVE mg/dL (<30 mg/dL)
[2017-01-06 02:46] LABS: URINE APPEARANCE CLOUDY (CLEAR); URINE COLOR YELLOW (YELLOW)
[2017-01-06 02:48] LABS: URINE BACTERIA MANY (NEG); URINE EPITHELIAL CELLS MANY /hpf (0-5); URINE RBC 0 - 2 /hpf (0-2)
--- NOTE | 2017-01-06 03:57 | CT ---
EXAM: CT Abdomen and Pelvis Without Intravenous Contrast EXAM DATE/TIME: 01/06/2017 2:17 AM CLINICAL HISTORY: 41 years old, female; Pain; Abdominal pain; Flank; Left; Prior surgery; Surgery date: 6+ months; Surgery type: Appendectomy, gallbladder removal; Additional info: Left sided abdominal pain TECHNIQUE: Axial computed tomography images of the abdomen and pelvis without intravenous contrast. All CT scans at this facility use one or more dose reduction techniques, viz.: automated exposure control; ma/kV adjustment per patient size (including targeted exams where dose is matched to indication; i.e. head); or iterative reconstruction technique. Coronal and sagittal reformatted images were created and reviewed. COMPARISON: CT - ABD PELVIS W/O PO OR IV CONT 08/28/2016 4:38:08 PM FINDINGS: There is bibasilar platelike atelectasis. Cholecystectomy clips are present. There appears to be intrahepatic duct dilation likely secondary to cholecystectomy however more prominent than on prior.Recommend correlation with laboratory values. The spleen is again seen to be prominent. An adjacent splenule is noted. The kidneys and pancreas appear grossly normal on this non-contrast study. No perinephric stranding. No hydronephrosis. No obstructing calculi. The colon is distended with stool consistent with mild constipation. Appendectomy. 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 IMPRESSION: Mild constipation. Mild intrahepatic biliary duct dilation as discussed above.
[2017-01-06] MEDS ORDERED: Morphine 2 mg/ml ISec IVP PRN (05:10)
[2017-01-06] MEDS ORDERED: Lactated Ringer's 1,000 ML IV SCH (05:15)
--- NOTE | 2017-01-06 05:35 | CP.PCM.HP ---
<TOM PFEIFFER - Last Filed: 01/06/17 05:22> History of Present Illness - History of Present Illness History of Present Illness: Tom Ashlie DO PGY1 - Internal Medicine H&P CC: Abdominal pain 41 y/o F with PMH of chronic pancreatitis and chronic opioid use presents to the ED for 2 day history of abdominal pain. Pt states pain started gradually. She states the pain is an 8/10 and is constant. She describes the pain as stabbing in nature, and "radiating to my back" as well as LLQ pain. Pt also states during this time she has experienced multiple bouts of nausea and vomiting, unable to tolerate PO. Vomiting is nonbilious, nonbloody. Pt also admits to have several episodes of diarrhea, including 5 bouts today, including some tarry diarrhea. Pt admits to several pancreatic surgeries in the past due to having gallstone pancreatitis. Pt states she has not had any alcohol or tobacco use recently and in fact, denies any alcohol use/abuse in the past. Denies CP, SOB, fever, chills, headaches, sick contacts, dizziness. She also reports that her whole body is swollen, and has pain in her legs. Of note, patient has come in with similar complaints in the past, became belligerent during hospitalization demanding specific and increasing doses of narcotics and sedatives, suspected to be pain seeking. PMH: Chronic pancreatitis, chronic opioid use Surgical Hx: Cholecystectomy, multiple pancreatic surgeries Family Hx: Unremarkable Social Hx: Former smoker, denies alcohol, denies illicit drug use. Allergies: Clarithromycin, IV contrast, Levaquin (Fluoroquinolones), NSAIDs, Tizanidine Medication: Clonazepam, Lyrica, Seroquel PMD: None ROS - As per HPI Present on Admission - Present on Admission Any Indicators Present on Admission: No Past Patient History - Infectious Disease Hx of Infectious Diseases: None - Tetanus Immunizations Tetanus Immunization: Unknown - Past Medical History & Family History Past Medical History?: Yes - Past Social History Smoking Status: Current Some Days Smoker - CARDIAC Hx Cardiac Disorders: No - PULMONARY Hx Bronchitis: Yes Hx Pneumonia: Yes - NEUROLOGICAL Hx Migraine: Yes Hx Seizures: Yes - HEENT Hx HEENT Problems: No - RENAL Hx Chronic Kidney Disease: Yes Hx Kidney Stones: Yes - ENDOCRINE/METABOLIC Hx Endocrine Disorders: Yes - HEMATOLOGICAL/ONCOLOGICAL Hx Anemia: Yes - INTEGUMENTARY Hx Dermatological Problems: Yes Hx Eczema: Yes - MUSCULOSKELETAL/RHEUMATOLOGICAL Hx Arthritis: Yes Hx Fractures: Yes - GASTROINTESTINAL Hx Pancreatitis: Yes - GENITOURINARY/GYNECOLOGICAL Hx Genitourinary Disorders: Yes Hx Urinary Tract Infection: Yes - PSYCHIATRIC Hx Anxiety: Yes Hx Depression: Yes Hx Substance Use: No - SURGICAL HISTORY Hx Appendectomy: Yes Hx Cholecystectomy: Yes - ANESTHESIA Hx Anesthesia: Yes Hx Anesthesia Reactions: No Hx Malignant Hyperthermia: No Meds Allergies/Adverse Reactions: Allergies Allergy/AdvReac Type Severity Reaction Status Date / Time clarithromycin [From Biaxin] Allergy ANAPHYLAXIS Verified 01/05/17 23:26 Iodinated Contrast- Oral and Allergy ANAPHYLAXIS Verified 01/05/17 23:26 IV Dye [Iodinated Contrast Media - IV Dye] levofloxacin [From Levaquin] Allergy ANAPHYLAXIS Verified 01/05/17 23:26 NSAIDS (Non-Steroidal Allergy ANAPHYLAXIS Verified 01/05/17 23:26 Anti-Inflamma shellfish derived Allergy ANAPHYLAXIS Verified 01/05/17 23:26 tizanidine HCl Allergy ANAPHYLAXIS Verified 01/05/17 23:26 [From Zanaflex] Physical Exam - Constitutional Appears: Non-toxic, In Acute Distress, Older Than Stated Age - Head Exam Head Exam: ATRAUMATIC, NORMOCEPHALIC - Eye Exam Eye Exam: EOMI, Normal appearance. absent: Scleral icterus - ENT Exam ENT Exam: Mucous Membranes Moist, Normal Exam Additional comments: Edentulous - Neck Exam Neck exam: Negative for: Lymphadenopathy, Thyromegaly - Respiratory Exam Respiratory Exam: Clear to Auscultation Bilateral. absent: Rales, Rhonchi, Wheezes - Cardiovascular Exam Cardiovascular Exam: RRR, +S1, +S2 - GI/Abdominal Exam GI & Abdominal Exam: Distended, Guarding, Soft, Tenderness (epigastric, LLQ). absent: Rebound, Rigid - Rectal Exam Rectal Exam: Deferred - Extremities Exam Extremities exam: Positive for: normal capillary refill, pedal edema, pedal pulses present. Negative for: calf tenderness Additional comments: 2-3+ pitting edema b/l LE to knees. Anterior lower legs erythematous, warm, edematous, and exquisitely tender b/l UE nonpitting edema - Back Exam Back exam: absent: CVA tenderness (L), CVA tenderness (R) - Neurological Exam Neurological exam: Alert, Oriented x3 - Psychiatric Exam Psychiatric exam: Agitated - Skin Skin Exam: Dry, Intact, Normal Color Additional comments: Except as noted in Extremities exam Results - Vital Signs Recent Vital Signs: Last Vital Signs Temp 97.9 F 01/05/17 23:13 Pulse 77 01/06/17 02:55 Resp 16 01/06/17 02:55 BP 92/46 L 01/06/17 02:55 Pulse Ox 96 01/06/17 02:55 - Labs Result Diagrams: 01/06/17 00:25 01/06/17 00:25 Assessment & Plan - Assessment and Plan (Free Text) Assessment: 41 yo F with PMH of chronic pancreatitis, fibromyalgia, chronic opioid use, presents with abdominal pain radiating to back, associated with N/V/D for the past 2 days, as well as pain and swelling in b/l LE, b/l hand swelling Plan: 1. Abdominal pain with N/V/D - 2/2 chronic pancreatitis vs acute gastritis vs constipation vs malingering - CT abdomen shows mildly dilated CBD, s/p cholesystectomy, no signs of acute pancreatitis, apparent constipation - Liver enzymes WNL, Lipase WNL, - Moderate IVF hydration with LR@100cc/hr (not aggressive because of diffuse edema) - Morphine 2mg Q4h PRN - Zofran PRN - GI consult requested, appreciate recs 2. Diffuse edema - 2/2 sepsis vs right sided CHF vs myxedema vs anasarca - BNP ordered - TSH ordered - Procal ordered - Avoid aggressive hydration at this time 3. b/l LE edema, erythema, and tenderness - likely cellulitis - Clinical exam reveals possible cellulitis, though afebrile with no leukocytosis - BCx ordered to r/o sepsis - Start Rocephin - ID consult requested, appreciate recs 4. h/o melena - Patient reports episodes of "tarry diarrhea" - FOBT ordered - H/H stable at this time GI/DVT Ppx Patient seen, discussed, and reviewed with attending <Liya Chinchilla - Last Filed: 01/06/17 07:37> Results - Vital Signs Recent Vital Signs: Last Vital Signs Temp 97.9 F 01/05/17 23:13 Pulse 700 H 01/06/17 05:37 Resp 18 01/06/17 05:37 BP 110/65 01/06/17 05:37 Pulse Ox 99 01/06/17 05:37 - Labs Result Diagrams: 01/06/17 00:25 01/06/17 00:25 Attending/Attestation - Attestation I have personally seen and examined this patient.: Yes I have fully participated in the care of the patient.: Yes I have reviewed all pertinent clinical information: Yes Notes (Text): 01/06/17 07:33 Agree with documentation and plan. Pt also has been on multiple psych meds at home,possibly has psych history. Psych consult requested to assess the same
[2017-01-06] MEDS ORDERED: Morphine 2 mg/ml ISec SC STA (06:31)
--- NOTE | 2017-01-06 07:25 | CP.PCM.CON ---
<Mechelle Shetty - Last Filed: 01/06/17 08:43> History of Present Illness - History of Present Illness History of Present Illness: Gastroenterology Fellow/PGY5 Consult Note 41 year old female with history of Chronic left hip/back pain on Dilaudid/ morphine, fibromyalgia, chronic abdominal pain, Depression, and Anxiety presenting with abdominal pain. She describes worsened epigastric pain radiating to back for three days, pain scale 10/10. Associated 3-5 bilious vomitus and 5-7 episodes diarrhea episodes daily. Denies fever, chills, sweats, hematemesis, hematochezia, melena, sick contacts, recent antibiotics, recent travel, or unintentional weight loss. Endorses multiple episodes of diarrhea and chronic pain on a daily basis, pain scale 7-8/10. Yet, on repeat questioning endorsed formed daily stools. Prior EGD and colonoscopy endorsed to show Gastritis, H pylori negative, gastric ulcers, polyps, ulcerative colitis, and internal hemorrhoids with recommended surveillance of 2 years per patient. Family- father- stage 4 duodenal cancer, 2 aunts- pancreatic cancer, paternal uncle- colon cancer, all in early 40s at time of diagnosis Social -sobriety, 1/3djdl04 years, denies illicit drug use Surgery- endorsed 5 pancreatic surgeries [id number] for endorsed history of chronic pancreatitis on Zen[employer]p [id number] ([employer]) - back surgery, cholecystectomy, appendectomy Review of Systems - Review of Systems Review of Systems: 12-point review of systems negative except for as above Past Patient History - Infectious Disease Hx of Infectious Diseases: None - Tetanus Immunizations Tetanus Immunization: Unknown - Past Medical History & Family History Past Medical History?: Yes - Past Social History Smoking Status: Current Some Days Smoker - CARDIAC Hx Cardiac Disorders: No - PULMONARY Hx Bronchitis: Yes Hx Pneumonia: Yes - NEUROLOGICAL Hx Migraine: Yes Hx Seizures: Yes - HEENT Hx HEENT Problems: No - RENAL Hx Chronic Kidney Disease: Yes Hx Kidney Stones: Yes - ENDOCRINE/METABOLIC Hx Endocrine Disorders: Yes - HEMATOLOGICAL/ONCOLOGICAL Hx Anemia: Yes - INTEGUMENTARY Hx Dermatological Problems: Yes Hx Eczema: Yes - MUSCULOSKELETAL/RHEUMATOLOGICAL Hx Arthritis: Yes Hx Fractures: Yes - GASTROINTESTINAL Hx Pancreatitis: Yes - GENITOURINARY/GYNECOLOGICAL Hx Genitourinary Disorders: Yes Hx Urinary Tract Infection: Yes - PSYCHIATRIC Hx Anxiety: Yes Hx Depression: Yes Hx Substance Use: No - SURGICAL HISTORY Hx Appendectomy: Yes Hx Cholecystectomy: Yes - ANESTHESIA Hx Anesthesia: Yes Hx Anesthesia Reactions: No Hx Malignant Hyperthermia: No Meds Allergies/Adverse Reactions: Allergies Allergy/AdvReac Type Severity Reaction Status Date / Time clarithromycin [From Biaxin] Allergy ANAPHYLAXIS Verified 01/05/17 23:26 Iodinated Contrast- Oral and Allergy ANAPHYLAXIS Verified 01/05/17 23:26 IV Dye [Iodinated Contrast Media - IV Dye] levofloxacin [From Levaquin] Allergy ANAPHYLAXIS Verified 01/05/17 23:26 NSAIDS (Non-Steroidal Allergy ANAPHYLAXIS Verified 01/05/17 23:26 Anti-Inflamma shellfish derived Allergy ANAPHYLAXIS Verified 01/05/17 23:26 tizanidine HCl Allergy ANAPHYLAXIS Verified 01/05/17 23:26 [From Zanaflex] - Medications Medications: Current Medications Docusate Sodium (Colace) 100 mg PO DAILY [facility] Heparin Sodium (Porcine) (Heparin) 5,000 units SC Q12 [facility] PRN Reason: Protocol Lactated Ringer's (Lactated Ringer's) 1,000 mls @ 100 mls/hr IV .Q10H [facility] Ceftriaxone Sodium (Rocephin 1 Gram Ivpb) 1 gm in 100 mls @ 100 mls/hr IVPB DAILY [facility] PRN Reason: Protocol Morphine Sulfate (Morphine) 2 mg IVP Q4H PRN PRN Reason: Pain, moderate (4-7) Ondansetron HCl (Zofran Inj) 4 mg IVP Q4H PRN PRN Reason: Nausea/Vomiting Pantoprazole Sodium (Protonix Inj) 40 mg IVP DAILY [facility] Physical Exam - Constitutional Appears: Non-toxic, No Acute Distress - Head Exam Head Exam: ATRAUMATIC, NORMOCEPHALIC - Eye Exam Eye Exam: EOMI, PERRL Pupil Exam: PERRL. absent: Miosis, Mydriatic - ENT Exam ENT Exam: Mucous Membranes Moist, Normal Oropharynx - Neck Exam Neck exam: Positive for: Full Rom, Normal Inspection - Respiratory Exam Respiratory Exam: Clear to Auscultation Bilateral. absent: Rales, Rhonchi, Wheezes - Cardiovascular Exam Cardiovascular Exam: RRR, +S1, +S2. absent: Gallop, Rubs - GI/Abdominal Exam GI & Abdominal Exam: Normal Bowel Sounds, Organomegaly, Soft, Tenderness. absent: Distended, Firm, Guarding, Rebound, Rigid Additional comments: B/L UQ tenderness to palpation - Extremities Exam Extremities exam: Positive for: normal inspection Additional comments: 1-2+ B/L LE pitting edema, RUE edema - Neurological Exam Neurological exam: Alert - Psychiatric Exam Psychiatric exam: Normal Affect, Normal Mood - Skin Skin Exam: Dry, Intact, Normal Color, Warm Results - Vital Signs Recent Vital Signs: Last Vital Signs Temp 97.9 F 01/05/17 23:13 Pulse 700 H 01/06/17 05:37 Resp 18 01/06/17 05:37 BP 110/65 01/06/17 05:37 Pulse Ox 99 01/06/17 05:37 - Labs Result Diagrams: 01/06/17 00:25 01/06/17 00:25 Assessment & Plan - Assessment and Plan (Free Text) Assessment: 41 year old female with endorsed history of chronic left hip/back pain on Dilaudid/morphine, fibromyalgia, chronic abdominal pain, Depression, and Anxiety presenting with abdominal pain. Active treatment of chronic abdominal pain. Prior EGD and colonoscopy endorsed to show Gastritis, H pylori negative, gastric ulcers, polyps, ulcerative colitis, and internal hemorrhoids with recommended surveillance of 2 years per patient. Plan: >likely 2/2 to opioid addiction/dependence >drug seeking behavior- 4 ER visits in last week for pain >avoid narcotics, endorsed anaphylaxis to NSAIDs >CT-constipation- likely opioid induced >recommend Miralax on discharge >endorsed diarrhea- overflow? vs malingering >ordered Cdiff, stool culture, O&P, fecal leukocytes >no acute pancreatitis, no evidence of chronic pancreatitis on CT >unable to to CT pancreas protocol due to contrast allergy >consider elective MRI to evaluate possible history of pancreas divisum >supportive care- antiemetics, pain control, PPI, IVFsM >advance diet as tolerated >does not follow with GI- endorsed history of chronic pancreatitis, Ulcerative colitis >obtain records from [facility] <Benedict Hicks - Last Filed: 01/06/17 08:55> Meds - Medications Medications: Current Medications Docusate Sodium (Colace) 100 mg PO DAILY [facility] Heparin Sodium (Porcine) (Heparin) 5,000 units SC Q12 [facility] PRN Reason: Protocol Lactated Ringer's (Lactated Ringer's) 1,000 mls @ 100 mls/hr IV .Q10H [facility] Ceftriaxone Sodium (Rocephin 1 Gram Ivpb) 1 gm in 100 mls @ 100 mls/hr IVPB DAILY [facility] PRN Reason: Protocol Morphine Sulfate (Morphine) 2 mg IVP Q4H PRN PRN Reason: Pain, moderate (4-7) Ondansetron HCl (Zofran Inj) 4 mg IVP Q4H PRN PRN Reason: Nausea/Vomiting Pantoprazole Sodium (Protonix Inj) 40 mg IVP DAILY [facility] Results - Vital Signs Recent Vital Signs: Last Vital Signs Temp 97.9 F 01/06/17 08:29 Pulse 72 01/06/17 08:29 Resp 18 01/06/17 08:29 BP 90/59 L 01/06/17 08:29 Pulse Ox 98 01/06/17 08:29 - Labs Result Diagrams: 01/06/17 00:25 01/06/17 00:25 Labs: Laboratory Results - last 24 hr 01/06/17 07:26 POC Glucose (mg/dL) 116 H Attending/Attestation - Attestation I have personally seen and examined this patient.: Yes I have fully participated in the care of the patient.: Yes I have reviewed all pertinent clinical information: Yes Notes (Text): 01/06/17 08:50 41 year old female with h/o chronic hip and back pain, fibromyalgia, chronic abdominal pain, depression, opiate dependence admitted with abdominal pain. 1. Chronic abdominal pain 2. Drug induced constipation Plan: -this patient endorses a history of pancreatitis, however the diagnosis of chronic pancreatitis is not evident on any of our imaging studies -she certainly doesn't meet criteria for acute pancreatitis based on labs/ imaging, she never has had lipase > 3x normal here, she has never really had CT evidence of acute pancreatitis -she also does not have any imaging evidence of chronic pancreatitis ( calcifications, pancreatic ductal dilation, history of local complications of pancreatitis, etc) -the diagnosis of chronic pancreatitis is questionable considering the above -at the same time, she demonstrates a evidence of opiate addiction and dependence as well as drug seeking behavior, and she has GI complications of opiate addiction with CT evidence of constipation -would recommend a consistent bowel regimen with miralax at least or possibly even relistor / movantak / amitiza as an outpatient -would recommend PPI and supportive measures -diet as tolerated -no indication for endoscopy at this time or other invasive procedures -will sign off at this time
--- NOTE | 2017-01-06 08:25 | RAD ---
HISTORY: abdominal pain COMPARISON: Comparison chest 12/30/2016. FINDINGS: LUNGS: No active pulmonary disease. PLEURA: No significant pleural effusion identified, no pneumothorax apparent. CARDIOVASCULAR: Normal. OSSEOUS STRUCTURES: No significant abnormalities. VISUALIZED UPPER ABDOMEN: Normal. OTHER FINDINGS: None. IMPRESSION: No active disease.
[2017-01-06] MEDS: cefTRIAXone 1 gm 1 GM/100 ML BAG IVPB SCH (11:39)
[2017-01-06] MEDS ORDERED: Pneumococcal 23-Valent Vaccine IM ONE (12:32)
--- NOTE | 2017-01-06 16:30 | CON ---
HISTORY OF PRESENT ILLNESS: The patient is a 41-year-old female with multiple medical problems including chronic pancreatitis, cholecystectomy, fibromyalgia, drug abuse, alcohol abuse. The patient was admitted on the medical side for evaluation of left upper quadrant pain with abdominal bloating, nausea, and vomiting. Psych consult was called for evaluation of possible depressive symptoms and the patient has questionable history of mental illness. The patient was seen and examined. The patient is not very pleasant for this database report writer, was giving only yes or no answers. The patient reported that she does not feel depressed. She suffered from anxiety after her closest friend was shot by a gun. The patient denied hearing voices, denied seeing things, denied paranoid ideation. The patient reported that she takes Klonopin by an unknown prescriber and the patient refused to give information about pharmacy. This is very questionable. The patient does not have history at [place]. Majority of the time, the patient was in [place]. The patient does not have history of being admitted to Psychiatric Inpatient Unit based on [facility] documentation. MEDICATIONS: Reviewed. The patient was on antibiotics and also on Colace, heparin, Zofran, and Protonix. DIAGNOSTIC STUDIES: Labs reviewed. Calculation also reviewed. Toxicology, alcohol is less than 10. PHYSICAL EXAMINATION: This database report writer reviewed vital signs, temperature 97.9, pulse is 72, blood pressure 90/59, respirations 18, oxygen saturation is 98. MENTAL STATUS EVALUATION: The patient is irritable, flat affect, was not forthcoming with intermission. Mood described as not depressed, has only anxiety problem. Affect was flat, mood congruent. Thought process coherent but concrete. Thought content, the patient denied visual, auditory, or tactile hallucinations. Denied paranoid ideation. The patient denied thoughts of harming herself or others. Denies intents or plan. Insight and judgment seem to be fair. Impulses are well controlled. IMPRESSION: Substance-induced mood disorder. The patient reported to have history of anxiety, but this is questionable. The patient has history of substance abuse. PLAN: There is no other recommendation at present moment available. The patient is deemed not to be in danger to self or others. In regard to anxiety, the patient could have Restoril. No benzodiazepine was recommended. The patient was not able to confirm medication as well as was refusing to give pharmacy phone number, and did not tell this database report writer who is her prescriber. This database report writer will sign off. Should you have any questions, give me a call back. From this database report writer's evaluation, the patient is deemed not in any imminent danger to self or others. Thank you very much for letting me to participate in the care of your patient. Marci Martinez MD
[2017-01-06] MEDS ORDERED: PREGABALIN 300 MG PO SCH (18:00)
[2017-01-06] MEDS: oxyCODONE 5 mg Immediate Release Tab PO PRN (18:27)
--- NOTE | 2017-01-06 18:57 | CARD ---
APPROVED REPORT EKG Measurement Heart [id number] <Conclusion> Normal sinus rhythm Low voltage QRS Borderline ECG
--- NOTE | 2017-01-06 20:20 | CP.PCM.CON ---
History of Present Illness - History of Present Illness History of Present Illness: Infectious Disease Consultation: January 06, 2017 41 yo female with mild general swelling, complaints of vague "generalized severe" pain, and a history of chronic pancreatitis with multiple surgeries starting in 2007. The patient claims pain from 8-10 out of 10. She claims multiple episodes of diarrhea and previous diagnosis of C. Diff. Claims 3 episodes of diarrhea today. Blood work is not showing any specific abnormalities. Patient claims eczema in the arms with scratch stack but the area is isolated to the forearms bilaterally and appear more like track stack. Patient claims all procedures done at [facility]. The patient also claimed multiple abdominal surgeries for pancreatitis but no surgical stack of scars seen on the abdomen. PMHx: Chronic Pancreatitis (as per the patient - current laboratories do not support diagnosis of pancreatitis at this time), chronic opioid use PSHx: Claims cholecystectomy and multiple abdominal surgeries. CT is showing cholecystectomy clips in abdomen. CT displays signs of appendectomy. Allergies: Clarithromycin, Iodine, Levofloxacin, Shellfish, NSAIDS, and Zanaflex - claims all cause anaphylactic shock. Social Hx: Patient is former smoker, she denies EtOH and drug abuse. Active Medications Docusate Sodium (Colace) 100 mg PO DAILY [facility] Last Admin: 01/06/17 10:55 Dose: Not Given Heparin Sodium (Porcine) (Heparin) 5,000 units SC Q12 [facility] PRN Reason: Protocol Last Admin: 01/06/17 10:55 Dose: Not Given Lactated Ringer's (Lactated Ringer's) 1,000 mls @ 100 mls/hr IV .Q10H [facility] Last Admin: 01/06/17 17:13 Dose: Not Given Ceftriaxone Sodium (Rocephin 1 Gram Ivpb) 1 gm in 100 mls @ 100 mls/hr IVPB DAILY [facility] PRN Reason: Protocol Last Admin: 01/06/17 11:39 Dose: Not Given Ondansetron HCl (Zofran Inj) 4 mg IVP Q4H PRN PRN Reason: Nausea/Vomiting Oxycodone HCl (Oxycodone Immediate Release Tab) 5 mg PO Q6H PRN PRN Reason: Pain, severe (8-10) Last Admin: 01/06/17 18:27 Dose: 5 mg Pantoprazole Sodium (Protonix Inj) 40 mg IVP DAILY [facility] Last Admin: 01/06/17 10:55 Dose: Not Given Pregabalin (Lyrica) 300 mg PO BID [facility] Last Admin: 01/06/17 17:13 Dose: 300 mg Family Hx: none given ROS: Claims diarrhea, general pain, abdominal pain, weakness, general body swelling. No chest pain, headaches, fevers, chills, loss of consciousness, melena, hematuria, hematemesis, hematochezia Past Patient History - Infectious Disease Hx of Infectious Diseases: None - Tetanus Immunizations Tetanus Immunization: Unknown - Past Medical History & Family History Past Medical History?: Yes - Past Social History Smoking Status: Current Some Days Smoker - CARDIAC Hx Cardiac Disorders: No - PULMONARY Hx Respiratory Disorders: Yes (SMOKES CIGARETTES 1/2 PPD) Hx Bronchitis: Yes Hx Pneumonia: Yes - NEUROLOGICAL Hx Neurological Disorder: Yes (FIBROMYALGIA) Hx Migraine: Yes Hx Seizures: Yes - HEENT Hx HEENT Problems: No - RENAL Hx Chronic Kidney Disease: Yes Hx Kidney Stones: Yes - ENDOCRINE/METABOLIC Hx Endocrine Disorders: Yes - HEMATOLOGICAL/ONCOLOGICAL Hx Blood Disorders: Yes Hx Anemia: Yes - INTEGUMENTARY Hx Dermatological Problems: Yes Hx Eczema: Yes - MUSCULOSKELETAL/RHEUMATOLOGICAL Hx Arthritis: Yes Hx Falls: Yes Hx Fractures: Yes - GASTROINTESTINAL Hx Gastrointestinal Disorders: Yes (INT. HEMORRHOIDS,APPENDECTOMY,) Hx Gall Bladder Disease: Yes (CHOLECYSTITIS,) Hx Pancreatitis: Yes Hx Ulcer: Yes (ULCERATIVE COLITIS,GASTRIC ULCERS.) - GENITOURINARY/GYNECOLOGICAL Hx Genitourinary Disorders: Yes Hx Urinary Tract Infection: Yes - PSYCHIATRIC Hx Anxiety: Yes Hx Depression: Yes Hx Substance Use: Yes (OPIATES) - SURGICAL HISTORY Hx Surgeries: Yes Hx Appendectomy: Yes Hx Cholecystectomy: Yes - ANESTHESIA Hx Anesthesia: Yes Hx Anesthesia Reactions: No Hx Malignant Hyperthermia: No Meds Allergies/Adverse Reactions: Allergies Allergy/AdvReac Type Severity Reaction Status Date / Time clarithromycin [From Biaxin] Allergy ANAPHYLAXIS Verified 01/06/17 11:38 Iodinated Contrast- Oral and Allergy ANAPHYLAXIS Verified 01/06/17 11:38 IV Dye [Iodinated Contrast Media - IV Dye] levofloxacin [From Levaquin] Allergy ANAPHYLAXIS Verified 01/06/17 11:38 NSAIDS (Non-Steroidal Allergy ANAPHYLAXIS Verified 01/06/17 11:38 Anti-Inflamma shellfish derived Allergy ANAPHYLAXIS Verified 01/06/17 11:38 tizanidine HCl Allergy ANAPHYLAXIS Verified 01/06/17 11:38 [From Zanaflex] - Medications Medications: Current Medications Docusate Sodium (Colace) 100 mg PO DAILY [facility] Last Admin: 01/06/17 10:55 Dose: Not Given Heparin Sodium (Porcine) (Heparin) 5,000 units SC Q12 [facility] PRN Reason: Protocol Last Admin: 01/06/17 10:55 Dose: Not Given Lactated Ringer's (Lactated Ringer's) 1,000 mls @ 100 mls/hr IV .Q10H [facility] Last Admin: 01/06/17 17:13 Dose: Not Given Ceftriaxone Sodium (Rocephin 1 Gram Ivpb) 1 gm in 100 mls @ 100 mls/hr IVPB DAILY [facility] PRN Reason: Protocol Last Admin: 01/06/17 11:39 Dose: Not Given Ondansetron HCl (Zofran Inj) 4 mg IVP Q4H PRN PRN Reason: Nausea/Vomiting Oxycodone HCl (Oxycodone Immediate Release Tab) 5 mg PO Q6H PRN PRN Reason: Pain, severe (8-10) Last Admin: 01/06/17 18:27 Dose: 5 mg Pantoprazole Sodium (Protonix Inj) 40 mg IVP DAILY [facility] Last Admin: 01/06/17 10:55 Dose: Not Given Pregabalin (Lyrica) 300 mg PO BID [facility] Last Admin: 01/06/17 17:13 Dose: 300 mg Physical Exam - Constitutional Appears: Non-toxic, No Acute Distress, Chronically Ill Additional comments: general +1 edema. - Head Exam Head Exam: ATRAUMATIC, NORMOCEPHALIC - Eye Exam Eye Exam: EOMI, PERRL Pupil Exam: NORMAL ACCOMODATION, PERRL - ENT Exam ENT Exam: Mucous Membranes Moist, Normal External Ear Exam, TM's Normal Bilaterally - Neck Exam Neck exam: Positive for: Full Rom, Normal Inspection - Respiratory Exam Respiratory Exam: Clear to Auscultation Bilateral, NORMAL BREATHING PATTERN. absent: Rales, Rhonchi, Wheezes - Cardiovascular Exam Cardiovascular Exam: REGULAR RHYTHM, RRR, +S1, +S2 - GI/Abdominal Exam GI & Abdominal Exam: Normal Bowel Sounds, Soft. absent: Distended, Tenderness - Extremities Exam Extremities exam: Positive for: full ROM Additional comments: There appear to be track stack on the upper forearms left arm worse than right. Generalized +1 edema to extremities. - Neurological Exam Neurological exam: Alert, CN II-XII Intact, Oriented x3 - Psychiatric Exam Psychiatric exam: Normal Affect, Normal Mood - Skin Additional comments: as above. Results - Vital Signs Recent Vital Signs: Last Vital Signs Temp 97.9 F 01/06/17 12:02 Pulse 72 01/06/17 12:02 Resp 18 01/06/17 12:02 BP 90/59 L 01/06/17 12:02 Pulse Ox 98 01/06/17 08:29 - Labs Result Diagrams: 01/06/17 00:25 01/06/17 00:25 Labs: Laboratory Results - last 24 hr 01/06/17 07:26 POC Glucose (mg/dL) 116 H Assessment & Plan - Assessment and Plan (Free Text) Assessment: 41 yo female with generalized swelling and presentation of abdominal pain. Patient is suspected of being drug seeking. History of cholecystectomy and appendectomy. The patient is NOT showing any leukocytosis or fevers. No signs of elevated LFTs. She states a history of chronic pancreatitis but laboratories at this time are not displaying that. There is no drug screen available to review and the patient has refused any further blood work. On Rocephin for antibiotic coverage at this time. Supportive care. I am not seeing any specific infectious diseae issues at this time. Thank you for allowing me to participate in the care of the patient, we will follow with you.
[2017-01-07] MEDS: oxyCODONE 5 mg Immediate Release Tab PO PRN ×4 (00:16→21:39)
[2017-01-07 07:01] LABS: BASO # 0.01 K/mm3 (0.0-2.0); BASO % 0.2 % (0.0-3.0); EOS # 0.4 (0.0-0.7); EOS % 8.7 % (1.5-5.0); GRAN # 3.06 (1.4-6.5); GRAN % 64.8 % (50.0-68.0); HEMATOCRIT 33.6 % (36.0-48.0); LYMPH # 0.8 (1.2-3.4); LYMPH % 17.6 % (22.0-35.0); MEAN CELL VOLUME 82.4 fl (80.0-105.0); MEAN CORPUSCULAR HEMOGLOBIN 26.2 pg (25.0-35.0); MEAN CORPUSCULAR HGB CONC 31.8 g/dl (31.0-37.0); MEAN PLATELET VOLUME 10.3 fl (7.0-11.0); MONO # 0.4 (0.1-0.6); MONO % 8.7 % (1.0-6.0); RED CELL DISTRIBUTION WIDTH 16.6 % (11.5-14.5); WHITE BLOOD COUNT 4.7 10^3/ul (4.5-11.0)
[2017-01-07 07:12] LABS: ALB/GLOB RATIO 1.3 (1.1-1.8); ALKALINE PHOSPHATASE 210 U/L (38-126); ALT/SGPT 46 U/L (7-56); AST/SGOT 44 U/L (14-36); BILIRUBIN,TOTAL 0.5 mg/dL (0.2-1.3); BLOOD UREA NITROGEN 12 mg/dL (7-21); CALCIUM 8.7 mg/dL (8.4-10.5); CARBON DIOXIDE 26 mmol/L (21-33); CHLORIDE 104 mmol/L (98-107); CHOLESTEROL 193 mg/dL (130-200); GFR AFRICAN-AMERICAN > 60; GLUCOSE,RANDOM 118 mg/dL (70-110); MAGNESIUM 1.9 mg/dL (1.7-2.2); PHOSPHOROUS 4.4 mg/dL (2.5-4.5); POTASSIUM 4.1 mmol/L (3.6-5.0); SODIUM 138 mmol/L (132-148); TOTAL PROTEIN 6.4 g/dL (5.8-8.3)
[2017-01-07 08:51] VITALS: RESP 20
[2017-01-07] MEDS: cefTRIAXone 1 gm 1 GM/100 ML BAG IVPB SCH (09:10)
--- NOTE | 2017-01-07 16:35 | CP.PCM.PN ---
Subjective - Date & Time of Evaluation Date of Evaluation: 01/07/17 Time of Evaluation: 15:30 - Subjective Subjective: Infectious Disease Follow Up: January 07, 2017 41 yo female with mild general swelling, complaints of vague "generalized severe" pain, and a history of chronic pancreatitis with multiple surgeries starting in 2007. The patient claims pain from 8-10 out of 10. She claims multiple episodes of diarrhea and previous diagnosis of C. Diff. Claims 3 episodes of diarrhea today. Blood work is not showing any specific abnormalities. Patient claims eczema in the arms with scratch stack but the area is isolated to the forearms bilaterally and appear more like track stack. Patient claims all procedures done at [facility]. The patient also claimed multiple abdominal surgeries for pancreatitis but no surgical stack of scars seen on the abdomen. CT scan confirms cholecystectomy and appendectomy. Recent lab work showing no significant abnormalities. I am not currently seeing a significant sign for infection. Objective - Vital Signs/Intake and Output Vital Signs (last 24 hours): Temp Pulse Resp BP Pulse Ox 98.2 F 70 20 102/63 96 01/07/17 15:53 01/07/17 15:53 01/07/17 15:53 01/07/17 15:53 01/07/17 15:53 Intake and Output: 01/07/17 01/07/17 06:59 18:59 Intake Total 480 240 Balance 480 240 - Medications Medications: Current Medications Docusate Sodium (Colace) 100 mg PO DAILY [facility] Last Admin: 01/07/17 09:10 Dose: 100 mg Heparin Sodium (Porcine) (Heparin) 5,000 units SC Q12 [facility] PRN Reason: Protocol Last Admin: 01/07/17 09:11 Dose: Not Given Ceftriaxone Sodium (Rocephin 1 Gram Ivpb) 1 gm in 100 mls @ 100 mls/hr IVPB DAILY [facility] PRN Reason: Protocol Last Admin: 01/07/17 09:10 Dose: 100 mls/hr Ondansetron HCl (Zofran Inj) 4 mg IVP Q4H PRN PRN Reason: Nausea/Vomiting Oxycodone HCl (Oxycodone Immediate Release Tab) 5 mg PO Q6H PRN PRN Reason: Pain, severe (8-10) Last Admin: 01/07/17 15:50 Dose: 5 mg Pantoprazole Sodium (Protonix Inj) 40 mg IVP DAILY [facility] Last Admin: 01/07/17 09:10 Dose: 40 mg Pregabalin (Lyrica) 300 mg PO BID [facility] Last Admin: 01/07/17 09:11 Dose: 300 mg - Labs Labs: 01/07/17 06:51 01/07/17 06:51 PT 10.7 Seconds (9.9-11.8) 01/06/17 00:25 INR 0.99 (0.93-1.08) 01/06/17 00:25 APTT 27.6 Seconds (23.7-30.8) 01/06/17 00:25 - Constitutional Appears: Non-toxic, No Acute Distress, Chronically Ill - Head Exam Head Exam: ATRAUMATIC, NORMOCEPHALIC - Eye Exam Eye Exam: EOMI, PERRL Pupil Exam: NORMAL ACCOMODATION, PERRL - ENT Exam ENT Exam: Mucous Membranes Moist, Normal External Ear Exam, TM's Normal Bilaterally - Neck Exam Neck Exam: Full ROM, Normal Inspection - Respiratory Exam Respiratory Exam: Clear to Ausculation Bilateral, NORMAL BREATHING PATTERN. absent: Rales, Rhonchi, Wheezes - Cardiovascular Exam Cardiovascular Exam: REGULAR RHYTHM, RRR, +S1, +S2 - GI/Abdominal Exam GI & Abdominal Exam: Soft, Normal Bowel Sounds. absent: Distended, Tenderness - Extremities Exam Extremities Exam: Full ROM Additional comments: There appear to be track stack on the upper forearms left arm worse than right. Generalized +1 edema to extremities. - Neurological Exam Neurological Exam: Alert, Awake, CN II-XII Intact, Oriented x3 - Psychiatric Exam Psychiatric exam: Normal Affect, Normal Mood - Skin Additional comments: as above. Assessment and Plan - Assessment and Plan (Free Text) Assessment: 41 yo female with generalized swelling and presentation of abdominal pain. Patient is suspected of being drug seeking. History of cholecystectomy and appendectomy. The patient is NOT showing any leukocytosis or fevers. No signs of elevated LFTs. She states a history of chronic pancreatitis but laboratories at this time are not displaying that. There is no drug screen available to review and the patient has refused any further blood work. On Rocephin for antibiotic coverage at this time. Supportive care. I am not seeing any specific infectious disease issues at this time. Thank you for allowing me to participate in the care of the patient, we will follow with you.
--- NOTE | 2017-01-07 17:27 | CP.PCM.PN ---
<RicFiorellan - Last Filed: 01/07/17 19:59> Subjective - Date & Time of Evaluation Date of Evaluation: 01/07/17 Time of Evaluation: 07:21 - Subjective Subjective: Patient was seen and examined at bedside. The patient reports abdominal pain and new onset pain in the lower left back. She rates the pain as an 8/10 in severity. The patient also reports having one bowel movement at 3 a.m. that she described as having a pasty consistency. The patient also reports some reproducible chest pain on the lateral left chest wall. The patient denies any sore throat, fevers, chills, nausea, vomiting, changes in vision, headaches, dizziness or any other complaints. Objective - Vital Signs/Intake and Output Vital Signs (last 24 hours): Temp Pulse Resp BP Pulse Ox 98.2 F 70 20 102/63 96 01/07/17 15:53 01/07/17 15:53 01/07/17 15:53 01/07/17 15:53 01/07/17 15:53 Intake and Output: 01/07/17 01/07/17 06:59 18:59 Intake Total 480 240 Balance 480 240 - Medications Medications: Current Medications Docusate Sodium (Colace) 100 mg PO DAILY [facility] Last Admin: 01/07/17 09:10 Dose: 100 mg Heparin Sodium (Porcine) (Heparin) 5,000 units SC Q12 [facility] PRN Reason: Protocol Last Admin: 01/07/17 09:11 Dose: Not Given Ceftriaxone Sodium (Rocephin 1 Gram Ivpb) 1 gm in 100 mls @ 100 mls/hr IVPB DAILY [facility] PRN Reason: Protocol Last Admin: 01/07/17 09:10 Dose: 100 mls/hr Ondansetron HCl (Zofran Inj) 4 mg IVP Q4H PRN PRN Reason: Nausea/Vomiting Oxycodone HCl (Oxycodone Immediate Release Tab) 5 mg PO Q6H PRN PRN Reason: Pain, severe (8-10) Last Admin: 01/07/17 15:50 Dose: 5 mg Pantoprazole Sodium (Protonix Inj) 40 mg IVP DAILY [facility] Last Admin: 01/07/17 09:10 Dose: 40 mg Pregabalin (Lyrica) 300 mg PO BID [facility] Last Admin: 01/07/17 17:05 Dose: 300 mg - Labs Labs: 01/07/17 06:51 01/07/17 06:51 PT 10.7 Seconds (9.9-11.8) 01/06/17 00:25 INR 0.99 (0.93-1.08) 01/06/17 00:25 APTT 27.6 Seconds (23.7-30.8) 01/06/17 00:25 - Head Exam Head Exam: ATRAUMATIC, NORMAL INSPECTION, NORMOCEPHALIC - Eye Exam Eye Exam: EOMI, Normal appearance, PERRL Pupil Exam: NORMAL ACCOMODATION. absent: Irregular - ENT Exam ENT Exam: Mucous Membranes Moist, Normal Exam - Neck Exam Neck Exam: Normal Inspection. absent: Lymphadenopathy - Respiratory Exam Respiratory Exam: Clear to Ausculation Bilateral, NORMAL BREATHING PATTERN. absent: Decreased Breath Sounds, Rhonchi - Cardiovascular Exam Cardiovascular Exam: REGULAR RHYTHM, RRR, +S1, +S2. absent: Gallop, Rubs - GI/Abdominal Exam GI & Abdominal Exam: Soft, Tenderness, Normal Bowel Sounds - Extremities Exam Extremities Exam: Full ROM Additional comments: Trace edema BLE. - Back Exam Back Exam: NORMAL INSPECTION. absent: paraspinal tenderness - Psychiatric Exam Psychiatric exam: Normal Affect, Normal Mood - Skin Skin Exam: Dry Assessment and Plan - Assessment and Plan (Free Text) Assessment: 41 yo F with PMH of chronic pancreatitis, fibromyalgia, chronic opioid use, presents with abdominal pain radiating to back, associated with N/V/D for the past 2 days, as well as pain and swelling in b/l LE, b/l hand swelling Plan: 1. Abdominal pain with N/V/D - 2/2 chronic pancreatitis vs acute gastritis vs constipation vs malingering - CT abdomen shows mildly dilated CBD, s/p cholesystectomy, no signs of acute pancreatitis, apparent constipation - Liver enzymes WNL, Lipase WNL, - Fluids d/c'ed due to trace edema in lower extremities. - Continue Morphine for pain. Patient has known drug seeking past. - Continue Zofran PRN - GI consult rec's appreciated. 2. Diffuse edema -Physical exam today showed traced edema bilaterally. -Duplex U/S LE bilaterally ordered. Will f/u with rec's tomorrow. -Echocardiogram ordered. F/U with rec's tomorrow. - Avoid aggressive hydration at this time -IVF fluids d/c'ed. 3. B/L LE edema, erythema, and tenderness - likely cellulitis - Clinical exam reveals possible cellulitis, though continues to remain afebrile with no leukocytosis. - Urine cx negative. BCx pending. - Continue Rocephin - ID consult requested. rec's appreciated. 4. Drug seeking behavior -Psych consulted. Rec's appreciated. -Patient continues to ask for IV pain medications. Patient made aware that IV pain medications will not happen. -Will continue PO oxycodone for pain. 4. H/o melena - Patient reports episodes of "tarry diarrhea" - H/H stable at this time. Will continue to follow with serial cbc's. GI/DVT Ppx -Continue Heparin and Protonix. <Karis Stokes MD - Last Filed: 01/08/17 11:08> Objective - Vital Signs/Intake and Output Vital Signs (last 24 hours): Temp Pulse Resp BP Pulse Ox 98 F 87 20 105/70 94 L 01/08/17 08:16 01/08/17 08:16 01/08/17 08:16 01/08/17 08:16 01/08/17 08:16 Intake and Output: 01/08/17 01/08/17 06:59 18:59 Intake Total 440 Balance 440 - Medications Medications: Current Medications Docusate Sodium (Colace) 100 mg PO DAILY [facility] Last Admin: 01/08/17 09:53 Dose: 100 mg Heparin Sodium (Porcine) (Heparin) 5,000 units SC Q12 [facility] PRN Reason: Protocol Last Admin: 01/08/17 09:54 Dose: 5,000 units Ondansetron HCl (Zofran Inj) 4 mg IVP Q4H PRN PRN Reason: Nausea/Vomiting Oxycodone HCl (Oxycodone Immediate Release Tab) 5 mg PO Q6H PRN PRN Reason: Pain, severe (8-10) Last Admin: 01/08/17 09:52 Dose: 5 mg Pantoprazole Sodium (Protonix Inj) 40 mg IVP DAILY [facility] Last Admin: 01/08/17 09:54 Dose: 40 mg Pregabalin (Lyrica) 300 mg PO BID [facility] Last Admin: 01/08/17 09:54 Dose: 300 mg - Labs Labs: 01/08/17 06:30 09/23/17 06:30 PT 10.7 Seconds (9.9-11.8) 01/06/17 00:25 INR 0.99 (0.93-1.08) 01/06/17 00:25 APTT 27.6 Seconds (23.7-30.8) 01/06/17 00:25 Attending/Attestation - Attestation I have personally seen and examined this patient.: Yes I have fully participated in the care of the patient.: Yes I have reviewed all pertinent clinical information, including history, physical exam and plan: Yes Notes (Text): 01/08/17 11:03 Patient was seen and examined with medical laboratory technologist .Agreed with resident assessment and plan. 41 year old female with PMH of chronic pancreatitis ? drug abuse ,chronic pain syndrome on who presented with intractable abdominal pain with nausea and vomiting. She was also c/o leg swelling CT abd/pelvis was negative for any acute abnormalities..Patient was seen in consultation with GI. Her diet was advanced.She is tolerating diet with out any issue since yesterday.She has history of Narcotic abuse and was requesting high dose of IV hydromorphone, despite she was lying comfortably with out any pain. Patient is not having any leg edema, however she is c/o leg swelling and pain, has bilateral good pulses.She is on room air.Lung sound are clear.Echo and doppler results are pending.If both are normal, she can be discharged home. Management plan was discussed in detail with patient Education was provided.
--- NOTE | 2017-01-07 17:51 | US ---
HISTORY: Leg pain and swelling. Evaluate for DVT PHYSICIAN(S): Junaid Ramos MD. TECHNIQUE: Duplex sonography and color-flow Doppler with graded compression were used to evaluate the deep venous systems of both lower extremities. FINDINGS: The visualized deep venous systems of both lower extremities are sonographically normal and compressible. Normal wave forms and augmentation are seen. There is no sonographic evidence for deep venous thrombosis in the visualized segments of both lower extremities. IMPRESSION: No sonographic evidence for deep venous thrombosis in the visualized segments of both lower extremities.
--- NOTE | 2017-01-08 01:00 | CARD ---
APPROVED REPORT EXAM: Two-dimensional and M-mode echocardiogram with Doppler and color Doppler. INDICATION Dyspnea 2D DIMENSIONS Left Atrium (2D)3.1 (1.6-4.0cm)IVSd1.0 (0.7-1.1cm) LVDd3.3 (3.9-5.9cm)PWd1.0 (0.7-1.1cm) LVDs2.4 (2.5-4.0cm)FS (%) 28.4 % LVEF (%)55.9 (>50%) M-Mode DIMENSIONS Aortic Root2.30 (2.2-3.7cm)Aortic Cusp Exc.1.50 (1.5-2.0cm) Aortic Valve AoV Peak Lguzpezl270.0cm/Denis Peak GR.5mmHg Mitral Valve MV E Zmmitrqm23.5cm/sMV A Soybjgwx71.7cm/sE/A ratio1.2 TDI E/Lateral E'0.0E/Medial E'0.0 Tricuspid Valve TR Peak [id number]/sRAP [id number] Peak Gr.21mmHg [id number] LEFT VENTRICLE The left ventricle is normal size. There is normal left ventricular wall thickness. The left ventricular function is normal. The left ventricular ejection fraction is within the normal range. There is normal LV segmental wall motion. The left ventricular diastolic function is normal. RIGHT VENTRICLE The right ventricle is normal size. There is normal right ventricular wall thickness. The right ventricular systolic function is normal. ATRIA The left atrium size is normal. The right atrium size is normal. AORTIC VALVE The aortic valve is not well visualized. No aortic regurgitation is present. There is no aortic valvular stenosis. MITRAL VALVE The mitral valve is normal in structure. There is no mitral valve regurgitation noted. TRICUSPID VALVE The tricuspid valve is normal in structure. There is no tricuspid valve regurgitation noted. GREAT VESSELS The aortic root is normal in size. The IVC is normal in size and collapses >50% with inspiration. <Conclusion> There is normal left ventricular wall thickness. The left ventricular function is normal. The left ventricular ejection fraction is within the normal range. There is normal LV segmental wall motion. The left ventricular diastolic function is normal.
[2017-01-08 02:04] VITALS: TEMP 98
[2017-01-08] MEDS: oxyCODONE 5 mg Immediate Release Tab PO PRN ×2 (03:41→09:52)
[2017-01-08 07:14] LABS: BASO # 0.01 K/mm3 (0.0-2.0); BASO % 0.4 % (0.0-3.0); EOS # 0.3 (0.0-0.7); EOS % 11.2 % (1.5-5.0); GRAN # 1.23 (1.4-6.5); GRAN % 45.6 % (50.0-68.0); HEMATOCRIT 31.6 % (36.0-48.0); LYMPH # 0.9 (1.2-3.4); LYMPH % 33.1 % (22.0-35.0); MEAN CELL VOLUME 81.9 fl (80.0-105.0); MEAN CORPUSCULAR HEMOGLOBIN 27.5 pg (25.0-35.0); MEAN CORPUSCULAR HGB CONC 33.5 g/dl (31.0-37.0); MEAN PLATELET VOLUME 10.5 fl (7.0-11.0); MONO # 0.3 (0.1-0.6); MONO % 9.7 % (1.0-6.0); RED CELL DISTRIBUTION WIDTH 16.5 % (11.5-14.5)
[2017-01-08 07:35] LABS: WHITE BLOOD COUNT 2.7 10^3/ul (4.5-11.0)
[2017-01-08 07:49] LABS: ALB/GLOB RATIO 1.3 (1.1-1.8); ALKALINE PHOSPHATASE 177 U/L (38-126); ALT/SGPT 40 U/L (7-56); AST/SGOT 35 U/L (14-36); BILIRUBIN,TOTAL 0.4 mg/dL (0.2-1.3); BLOOD UREA NITROGEN 17 mg/dL (7-21); CALCIUM 8.9 mg/dL (8.4-10.5); CARBON DIOXIDE 25 mmol/L (21-33); CHLORIDE 104 mmol/L (98-107); GFR AFRICAN-AMERICAN > 60; GLUCOSE,RANDOM 129 mg/dL (70-110); POTASSIUM 3.8 mmol/L (3.6-5.0); SODIUM 139 mmol/L (132-148); TOTAL PROTEIN 6.4 g/dL (5.8-8.3)
[2017-01-08 08:17] VITALS: BP 105/70; PULSE 87; O2SAT 94
--- NOTE | 2017-01-08 15:39 | CP.PCM.DIS ---
<RicSandoval - Last Filed: 01/08/17 16:07> Provider - Provider Date of Admission: 01/06/17 04:28 Attending physician: Karis Stokes MD Primary care physician: NO PRIMARY CARE PROVIDER Time Spent in preparation of Discharge (in minutes): 50 Hospital Course - Lab Results Lab Results: Micro Results 01/07/17 06:51 Blood-Venous Blood Culture - Preliminary NO GROWTH AFTER 24 HOURS 01/07/17 06:51 Blood-Venous Blood Culture - Preliminary Gram Positive Nigel 01/07/17 06:51 Blood-Venous Gram Stain - Final 01/06/17 05:10 Urine,Clean Catch Urine Culture - Final No Growth (<1,000 CFU/ML) Most Recent Lab Values WBC 2.7 10^3/ul (4.5-11.0) L* D 01/08/17 06:30 RBC 3.86 10^6/uL (3.5-6.1) 01/08/17 06:30 Hgb 10.6 g/dL (12.0-16.0) L 01/08/17 06:30 Hct 31.6 % (36.0-48.0) L 01/08/17 06:30 MCV 81.9 fl (80.0-105.0) 01/08/17 06:30 MCH 27.5 pg (25.0-35.0) 01/08/17 06:30 MCHC 33.5 g/dl (31.0-37.0) 01/08/17 06:30 RDW 16.5 % (11.5-14.5) H 01/08/17 06:30 Plt Count 180 10^3/uL (120.0-450.0) 01/08/17 06:30 MPV 10.5 fl (7.0-11.0) 01/08/17 06:30 Gran % 45.6 % (50.0-68.0) L 01/08/17 06:30 Lymph % (Auto) 33.1 % (22.0-35.0) 01/08/17 06:30 [place] % (Auto) 9.7 % (1.0-6.0) H 01/08/17 06:30 Eos % (Auto) 11.2 % (1.5-5.0) H 01/08/17 06:30 Baso % (Auto) 0.4 % (0.0-3.0) 01/08/17 06:30 Gran # 1.23 (1.4-6.5) L 01/08/17 06:30 Lymph # 0.9 (1.2-3.4) L 01/08/17 06:30 [place] # 0.3 (0.1-0.6) 01/08/17 06:30 Eos # 0.3 (0.0-0.7) 01/08/17 06:30 Baso # 0.01 K/mm3 (0.0-2.0) 01/08/17 06:30 PT 10.7 Seconds (9.9-11.8) 01/06/17 00:25 INR 0.99 (0.93-1.08) 01/06/17 00:25 APTT 27.6 Seconds (23.7-30.8) 01/06/17 00:25 Sodium 139 mmol/L (132-148) 01/08/17 06:30 Potassium 3.8 mmol/L (3.6-5.0) 01/08/17 06:30 Chloride 104 mmol/L (98-107) 01/08/17 06:30 Carbon Dioxide 25 mmol/L (21-33) 01/08/17 06:30 Anion Gap 14 (10-20) 01/08/17 06:30 BUN 17 mg/dL (7-21) 01/08/17 06:30 Creatinine 0.7 mg/dL (0.5-1.4) 01/08/17 06:30 Est GFR ( Amer) > 60 01/08/17 06:30 Est GFR (Non-Af Amer) > 60 01/08/17 06:30 POC Glucose (mg/dL) 116 mg/dL (65-110) H 01/06/17 07:26 Random Glucose 129 mg/dL (70-110) H 01/08/17 06:30 Calcium 8.9 mg/dL (8.4-10.5) 01/08/17 06:30 Phosphorus 4.4 mg/dL (2.5-4.5) 01/07/17 06:51 Magnesium 1.9 mg/dL (1.7-2.2) 01/07/17 06:51 Total Bilirubin 0.4 mg/dL (0.2-1.3) 01/08/17 06:30 AST 35 U/L (14-36) 01/08/17 06:30 ALT 40 U/L (7-56) 01/08/17 06:30 Alkaline Phosphatase 177 U/L (38-126) H 01/08/17 06:30 NT-Pro-B Natriuret Pep 27.0 pg/mL (0-450) 01/07/17 06:51 Total Protein 6.4 g/dL (5.8-8.3) 01/08/17 06:30 Albumin 3.6 g/dL (3.0-4.8) 01/08/17 06:30 Globulin 2.8 gm/dL 01/08/17 06:30 Albumin/Globulin Ratio 1.3 (1.1-1.8) 01/08/17 06:30 Triglycerides 98 mg/dL (35-160) 01/07/17 06:51 Cholesterol 193 mg/dL (130-200) 01/07/17 06:51 LDL Cholesterol Direct 137 mg/dL (0-129) H 01/07/17 06:51 HDL Cholesterol 43 mg/dL (29-60) 01/07/17 06:51 Lipase 72 U/L (23-300) 01/06/17 00:25 TSH 3rd Generation 3.71 mIU/mL (0.46-4.68) 01/07/17 06:51 Urine Color Yellow (YELLOW) 01/06/17 02:30 Urine Appearance Cloudy (CLEAR) 01/06/17 02:30 Urine pH 6.0 (4.7-8.0) 01/06/17 02:30 Ur Specific [place] 1.020 (1.005-1.035) 01/06/17 02:30 Urine Protein Negative mg/dL (<30 mg/dL) 01/06/17 02:30 Urine Glucose (UA) Negative mg/dL (NEGATIVE) 01/06/17 02:30 Urine Ketones Negative mg/dL (NEGATIVE) 01/06/17 02:30 Urine Blood Negative (NEGATIVE) 01/06/17 02:30 Urine Nitrate Negative (NEGATIVE) 01/06/17 02:30 Urine Bilirubin Negative (NEGATIVE) 01/06/17 02:30 Urine Urobilinogen 1.0 E.U./dL (<1 E.U./dL) H 01/06/17 02:30 Ur Leukocyte Esterase Small Chloe/uL (NEGATIVE) H 01/06/17 02:30 Urine RBC 0 - 2 /hpf (0-2) 01/06/17 02:30 Urine WBC 1 - 3 /hpf (0-6) 01/06/17 02:30 Ur Epithelial Cells Many /hpf (0-5) 01/06/17 02:30 Urine Bacteria Many (NEG) 01/06/17 02:30 Alcohol, Quantitative < 10 mg/dL (0-10) 01/06/17 00:25 Hepatitis A IgM Ab Negative (NEGATIVE) 01/07/17 06:51 Hep Bs Antigen Negative (NEGATIVE) 01/07/17 06:51 Hep B Core IgM Ab Negative (NEGATIVE) 01/07/17 06:51 Hepatitis C Antibody Negative (NEGATIVE) 01/07/17 06:51 - Hospital Course Hospital Course: This is a 41 year old female with a past medical history of chronic pancreatitis and chronic opiod use who came into the [facility] with complaints of a two day history of abdominal pain. The patient reports that the pain started gradually and rates it 8/10 and is constant. The patient describes the pain as stabbing in nature and "radiates to my back" as well as the LLQ pain. In conjunction with the abdominal pain she reports multiple episodes of nausea and vomiting and reports not being able to tolerate anything by mouth. Vomit is non-bilious, non-bloody. The patient also reports several episodes of diarrhea. Patient admits to several pancreatic surgeries in the past due to having gallstone pancreatitis. Patient denies any alcohol or tobacco use recently or in the past. She also reports that her whole body swollen, and has pain in her legs. Of note, the patient has come in with similar complaints in the past and became belligerent during hospitalization demanding specific narcotics and wanting the dosage to increase. The patient was seen by Infectious Disease and Buildings And Grounds Supervisor. The patient had a ECHO, lower extremity U/S, Abdomen/pelvis CT and a chest xray done. The patient had a blood culture done that was a false positive for (gram positive rods in one tube). The patient was also seen by Physical Therapy while admitted. The patient was examined today and was afebrile and her overall clinical picture had improved in comparison to admission. The patient was discharged with two limited prescriptions (#8oxycodone and #16Lyrica). Patient was advised to see her PMD within one week of discharge. Discharge Exam - Head Exam Head Exam: ATRAUMATIC, NORMAL INSPECTION, NORMOCEPHALIC - Eye Exam Eye Exam: EOMI, Normal appearance, PERRL. absent: Periorbital swelling, Periorbital tenderness Pupil Exam: NORMAL ACCOMODATION, PERRL. absent: Irregular, Miosis - ENT Exam ENT Exam: Mucous Membranes Moist, Normal Oropharynx - Respiratory Exam Respiratory Exam: Clear to PA & Lateral, NORMAL BREATHING PATTERN. absent: Accessory Muscle Use, Chest Wall Tenderness, Respiratory Distress - Cardiovascular Exam Cardiovascular Exam: REGULAR RHYTHM, RRR, +S1, +S2. absent: Gallop, JVD, Rubs - GI/Abdominal Exam GI & Abdominal Exam: Normal Bowel Sounds, Soft, Unremarkable. absent: Diminished Bowel Sounds, Firm, Guarding, Mass, Rigid - Back Exam Back exam: NORMAL INSPECTION. absent: CVA tenderness (L), CVA tenderness (R), paraspinal tenderness - Neurological Exam Neurological exam: Alert, CN II-XII Intact, Oriented x3 - Psychiatric Exam Psychiatric exam: Normal Affect, Normal Mood - Skin Skin Exam: Dry, Intact Discharge Plan - Discharge Medications Prescriptions: oxyCODONE [oxyCODONE Immediate Release Tab] 5 mg PO Q6 PRN #8 tab PRN Reason: Pain, Severe (8-10) Pregabalin [Lyrica] 300 mg PO BID #16 capsule - Follow Up Plan Condition: STABLE Disposition: HOME/ ROUTINE Instructions: Abdominal Pain (ED), Level 1 National Dysphagia Diet (GEN) Additional Instructions: 1. Patient should follow up with PMD within one week of discharge. 2. Patient counseled on drug addiction. Advised patient to seek help for drug dependence. 3. Patient should return to emergency department for any new or concerning symptoms. Referrals: PCP,NO [Primary Care Provider] - <Karis Stokes MD - Last Filed: 01/09/17 12:07> Provider - Provider Date of Admission: 01/06/17 04:28 Attending physician: Karis Stokes MD Primary care physician: NO PRIMARY CARE PROVIDER Hospital Course - Lab Results Lab Results: Micro Results 01/07/17 06:51 Blood-Venous Blood Culture - Final Bacillus Species 01/07/17 06:51 Blood-Venous Gram Stain - Final 01/07/17 06:51 Blood-Venous Blood Culture - Preliminary NO GROWTH AFTER 48 HOURS 01/06/17 05:10 Urine,Clean Catch Urine Culture - Final No Growth (<1,000 CFU/ML) Most Recent Lab Values WBC 2.7 10^3/ul (4.5-11.0) L* D 01/08/17 06:30 RBC 3.86 10^6/uL (3.5-6.1) 01/08/17 06:30 Hgb 10.6 g/dL (12.0-16.0) L 01/08/17 06:30 Hct 31.6 % (36.0-48.0) L 01/08/17 06:30 MCV 81.9 fl (80.0-105.0) 01/08/17 06:30 MCH 27.5 pg (25.0-35.0) 01/08/17 06:30 MCHC 33.5 g/dl (31.0-37.0) 01/08/17 06:30 RDW 16.5 % (11.5-14.5) H 01/08/17 06:30 Plt Count 180 10^3/uL (120.0-450.0) 01/08/17 06:30 MPV 10.5 fl (7.0-11.0) 01/08/17 06:30 Gran % 45.6 % (50.0-68.0) L 01/08/17 06:30 Lymph % (Auto) 33.1 % (22.0-35.0) 01/08/17 06:30 [place] % (Auto) 9.7 % (1.0-6.0) H 01/08/17 06:30 Eos % (Auto) 11.2 % (1.5-5.0) H 01/08/17 06:30 Baso % (Auto) 0.4 % (0.0-3.0) 01/08/17 06:30 Gran # 1.23 (1.4-6.5) L 01/08/17 06:30 Lymph # 0.9 (1.2-3.4) L 01/08/17 06:30 [place] # 0.3 (0.1-0.6) 01/08/17 06:30 Eos # 0.3 (0.0-0.7) 01/08/17 06:30 Baso # 0.01 K/mm3 (0.0-2.0) 01/08/17 06:30 PT 10.7 Seconds (9.9-11.8) 01/06/17 00:25 INR 0.99 (0.93-1.08) 01/06/17 00:25 APTT 27.6 Seconds (23.7-30.8) 01/06/17 00:25 Sodium 139 mmol/L (132-148) 01/08/17 06:30 Potassium 3.8 mmol/L (3.6-5.0) 01/08/17 06:30 Chloride 104 mmol/L (98-107) 01/08/17 06:30 Carbon Dioxide 25 mmol/L (21-33) 01/08/17 06:30 Anion Gap 14 (10-20) 01/08/17 06:30 BUN 17 mg/dL (7-21) 01/08/17 06:30 Creatinine 0.7 mg/dL (0.5-1.4) 01/08/17 06:30 Est GFR ( Amer) > 60 01/08/17 06:30 Est GFR (Non-Af Amer) > 60 01/08/17 06:30 POC Glucose (mg/dL) 116 mg/dL (65-110) H 01/06/17 07:26 Random Glucose 129 mg/dL (70-110) H 01/08/17 06:30 Calcium 8.9 mg/dL (8.4-10.5) 01/08/17 06:30 Phosphorus 4.4 mg/dL (2.5-4.5) 01/07/17 06:51 Magnesium 1.9 mg/dL (1.7-2.2) 01/07/17 06:51 Total Bilirubin 0.4 mg/dL (0.2-1.3) 01/08/17 06:30 AST 35 U/L (14-36) 01/08/17 06:30 ALT 40 U/L (7-56) 01/08/17 06:30 Alkaline Phosphatase 177 U/L (38-126) H 01/08/17 06:30 NT-Pro-B Natriuret Pep 27.0 pg/mL (0-450) 01/07/17 06:51 Total Protein 6.4 g/dL (5.8-8.3) 01/08/17 06:30 Albumin 3.6 g/dL (3.0-4.8) 01/08/17 06:30 Globulin 2.8 gm/dL 01/08/17 06:30 Albumin/Globulin Ratio 1.3 (1.1-1.8) 01/08/17 06:30 Triglycerides 98 mg/dL (35-160) 01/07/17 06:51 Cholesterol 193 mg/dL (130-200) 01/07/17 06:51 LDL Cholesterol Direct 137 mg/dL (0-129) H 01/07/17 06:51 HDL Cholesterol 43 mg/dL (29-60) 01/07/17 06:51 Lipase 72 U/L (23-300) 01/06/17 00:25 TSH 3rd Generation 3.71 mIU/mL (0.46-4.68) 01/07/17 06:51 Urine Color Yellow (YELLOW) 01/06/17 02:30 Urine Appearance Cloudy (CLEAR) 01/06/17 02:30 Urine pH 6.0 (4.7-8.0) 01/06/17 02:30 Ur Specific [place] 1.020 (1.005-1.035) 01/06/17 02:30 Urine Protein Negative mg/dL (<30 mg/dL) 01/06/17 02:30 Urine Glucose (UA) Negative mg/dL (NEGATIVE) 01/06/17 02:30 Urine Ketones Negative mg/dL (NEGATIVE) 01/06/17 02:30 Urine Blood Negative (NEGATIVE) 01/06/17 02:30 Urine Nitrate Negative (NEGATIVE) 01/06/17 02:30 Urine Bilirubin Negative (NEGATIVE) 01/06/17 02:30 Urine Urobilinogen 1.0 E.U./dL (<1 E.U./dL) H 01/06/17 02:30 Ur Leukocyte Esterase Small Chloe/uL (NEGATIVE) H 01/06/17 02:30 Urine RBC 0 - 2 /hpf (0-2) 01/06/17 02:30 Urine WBC 1 - 3 /hpf (0-6) 01/06/17 02:30 Ur Epithelial Cells Many /hpf (0-5) 01/06/17 02:30 Urine Bacteria Many (NEG) 01/06/17 02:30 Alcohol, Quantitative < 10 mg/dL (0-10) 01/06/17 00:25 Hepatitis A IgM Ab Negative (NEGATIVE) 01/07/17 06:51 Hep Bs Antigen Negative (NEGATIVE) 01/07/17 06:51 Hep B Core IgM Ab Negative (NEGATIVE) 01/07/17 06:51 Hepatitis C Antibody Negative (NEGATIVE) 01/07/17 06:51 Attending/Attestation - Attestation I have personally seen and examined this patient.: Yes I have fully participated in the care of the patient.: Yes I have reviewed all pertinent clinical information, including history, physical exam and plan: Yes Notes (Text): 01/09/17 12:01 Patient was seen and examined with medical safety director .Agreed with resident assessment and plan. 41 year old female with PMH of chronic pancreatitis ? drug abuse ,chronic pain syndrome was admitted with intractable abdominal pain with nausea and vomiting. She was also c/o leg swelling CT abd/pelvis was negative for any acute abnormalities..Patient was seen in consultation with GI, Her diet was advanced.She is tolerating diet with out any issue since yesterday. Patient is not having any leg edema, however she is c/o leg swelling and pain, has bilateral good pulses.She is on room air.Lung sound are clear.Echo showed normal systolic function, and venous doppler are negative for DVT.She was evaluated by PT prior to discharge and was felt safe to go home. She has mild Neutropenia likely due to Rocephin at the time of discharge.Rocephin was discontinued as patient is afebrile, does not has any evidence of infection.Patient was advised to follow up with PCP and will need repeat CBC in one week. Patient was given education about Narcotic dependency and side effect at the time of discharge. Management plan was discussed in detail with patient Education was provided.
--- NOTE | 2017-01-08 18:50 | CP.PCM.PN ---
Subjective - Date & Time of Evaluation Date of Evaluation: 01/08/17 Time of Evaluation: 14:00 - Subjective Subjective: Infectious Disease Follow Up: January 08, 2017 41 yo female with mild general swelling, complaints of vague "generalized severe" pain, and a history of chronic pancreatitis with multiple surgeries starting in 2007. The patient claims pain from 8-10 out of 10. She claims multiple episodes of diarrhea and previous diagnosis of C. Diff. Claims 3 episodes of diarrhea today. Blood work is not showing any specific abnormalities. Patient claims eczema in the arms with scratch stack but the area is isolated to the forearms bilaterally and appear more like track stack. Patient claims all procedures done at [facility]. The patient also claimed multiple abdominal surgeries for pancreatitis but no surgical stack of scars seen on the abdomen. CT scan confirms cholecystectomy and appendectomy. Recent lab work showing no significant abnormalities. I am not currently seeing a significant sign for infection. Objective - Vital Signs/Intake and Output Vital Signs (last 24 hours): Temp Pulse Resp BP Pulse Ox 98 F 87 20 105/70 94 L 01/08/17 08:16 01/08/17 08:16 01/08/17 08:16 01/08/17 08:16 01/08/17 08:16 Intake and Output: 01/08/17 01/08/17 06:59 18:59 Intake Total 440 Balance 440 - Labs Labs: 01/08/17 06:30 01/08/17 06:30 PT 10.7 Seconds (9.9-11.8) 01/06/17 00:25 INR 0.99 (0.93-1.08) 01/06/17 00:25 APTT 27.6 Seconds (23.7-30.8) 01/06/17 00:25 - Constitutional Appears: Non-toxic, No Acute Distress, Chronically Ill - Head Exam Head Exam: ATRAUMATIC, NORMOCEPHALIC - Eye Exam Eye Exam: EOMI, PERRL Pupil Exam: NORMAL ACCOMODATION, PERRL - ENT Exam ENT Exam: Mucous Membranes Moist, Normal External Ear Exam, TM's Normal Bilaterally - Neck Exam Neck Exam: Full ROM, Normal Inspection - Respiratory Exam Respiratory Exam: Clear to Ausculation Bilateral, NORMAL BREATHING PATTERN. absent: Rales, Rhonchi, Wheezes - Cardiovascular Exam Cardiovascular Exam: REGULAR RHYTHM, RRR, +S1, +S2 - GI/Abdominal Exam GI & Abdominal Exam: Soft, Normal Bowel Sounds. absent: Distended, Tenderness - Extremities Exam Extremities Exam: Full ROM Additional comments: There appear to be track stack on the upper forearms left arm worse than right. Generalized +1 edema to extremities. - Neurological Exam Neurological Exam: Alert, Awake, CN II-XII Intact, Oriented x3 - Psychiatric Exam Psychiatric exam: Normal Affect, Normal Mood - Skin Additional comments: as above Assessment and Plan - Assessment and Plan (Free Text) Assessment: 41 yo female with generalized swelling and presentation of abdominal pain. Patient is suspected of being drug seeking. History of cholecystectomy and appendectomy. The patient is NOT showing any leukocytosis or fevers. No signs of elevated LFTs. She states a history of chronic pancreatitis but laboratories at this time are not displaying that. There is no drug screen available to review and the patient has refused any further blood work. On Rocephin for antibiotic coverage at this time. Supportive care. I am not seeing any specific infectious disease issues at this time. Thank you for allowing me to participate in the care of the patient, we will follow with you.
== END 2017-01-08 16:15 | disposition home or self-care (01) ==
LOC: ED 23:00 → ERH 01-06 04:28 → 5RSO 01-06 05:47
PROVIDERS: ADMIT Internal Medicine; ATTEND Internal Medicine
DX: K86.1 Other chronic pancreatitis (principal); F10.10 Alcohol abuse, uncomplicated; F11.20 Opioid dependence, uncomplicated; F17.200 Nicotine dependence, unspecified, uncomplicated; G89.4 Chronic pain syndrome; D70.9 Neutropenia, unspecified; K51.90 Ulcerative colitis, unspecified, without complications; K59.03 Drug induced constipation; L30.9 Dermatitis, unspecified; M79.7 Fibromyalgia; N18.9 Chronic kidney disease, unspecified; T36.1X5A Adverse effect of cephalosporins and other beta-lactam antibiotics, initial encounter; Z79.899 Other long term (current) drug therapy; Z87.01 Personal history of pneumonia (recurrent); Z87.11 Personal history of peptic ulcer disease; Z87.440 Personal history of urinary (tract) infections; Z87.442 Personal history of urinary calculi; Z90.49 Acquired absence of other specified parts of digestive tract; Z80.0 Family history of malignant neoplasm of digestive organs
CPT/HCPCS: 36415; 71010; 74176; 80053; 80061; 80074; 80320; 81001; 82948; 83690; 83735; 83880; 84100; 84443; 85025; 85027; 85610; 85730; 87040; 87086; 87205; 93005; 93306; 93970; 96365; 96372; 96375; 96376; 97116; 97161; 99285; C1751; C9113; G0378; G8978; G8979; J0696; J1644; J2270; J2405

== ENCOUNTER 2017-01-31 22:23 | Emergency (ER) | payer OTHER ==
[2017-01-31 22:23] VITALS: BMI 20.7
[2017-01-31 22:55] VITALS: O2SAT 97
--- NOTE | 2017-01-31 23:09 | ED PDOC ---
Arrival/HPI - General Chief Complaint: Shortness Of Breath Time Seen by Provider: 01/31/17 22:50 Historian: Patient - History of Present Illness Narrative History of Present Illness (Text): 01/31/17 23:09 Maci Gama is a 42 year old female smoker, whose past medical history includes chronic pancreatitis, cholecystectomy, fibromyalgia, degenerative disc disease, and chronic opioid use, who presents to the ED complaining of chest pain. Patient states she has been experiencing intermittent chest pain for 2 weeks with shortness of breath and dyspnea on exertion. Patient also reports intermittent wheezing for 4 day, bilateral lower extremity swelling, and left hip discomfort. Patient denies any fever, chills, nausea, vomiting, diarrhea, urinary symptoms, back pain, neck pain, headache, dizziness, or any other complaints. Time/Duration: < month (2 weeks) Symptom Onset: Gradual Symptom Course: Unchanged Activities at Onset: Light Context: Home Past Medical History - Provider Review Nursing Documentation Reviewed: Yes - Infectious Disease Hx of Infectious Diseases: None - Tetanus Immunization Tetanus Immunization: Unknown - Cardiac Hx Cardiac Disorders: No Hx CO: Yes (x2) - Pulmonary Hx Bronchitis: Yes Hx Pneumonia: Yes - Neurological Hx Migraine: Yes Hx Seizures: Yes Hx Transient Ischemic Attacks (TIA): Yes - HEENT Hx HEENT Disorder: No - Renal Hx Renal Disorder: Yes Hx Kidney Stones: Yes - Endocrine/Metabolic Hx Endocrine Disorders: Yes - Hematological/Oncological Hx Anemia: Yes - Integumentary Hx Dermatological Disorder: Yes Hx Eczema: Yes - Musculoskeletal/Rheumatological Hx Arthritis: Yes Hx Fractures: Yes - Gastrointestinal Hx Gall Bladder Disease: Yes (CHOLECYSTITIS,) Hx Gastrointestinal Ulcer: Yes Hx Pancreatitis: Yes - Genitourinary/Gynecological Hx Genitourinary Disorders: Yes Hx Urinary Tract Infection: Yes - Psychiatric Hx Anxiety: Yes Hx Depression: Yes Hx Substance Use: Yes (OPIATES) - Surgical History Hx Appendectomy: Yes Hx Cholecystectomy: Yes - Anesthesia Hx Anesthesia: Yes Hx Anesthesia Reactions: No Hx Malignant Hyperthermia: No Family/Social History - Physician Review Nursing Documentation Reviewed: Yes Family/Social History: Unknown Family HX Smoking Status: Heavy Smoker > 10 Cigarettes Daily Hx Alcohol Use: No Hx Substance Use: Yes (OPIATES) Allergies/Home Meds Allergies/Adverse Reactions: Allergies clarithromycin [From Biaxin] Allergy (Verified 02/01/17 04:26) ANAPHYLAXIS Iodinated Contrast- Oral and IV Dye [Iodinated Contrast Media - IV Dye] Allergy (Verified 02/01/17 04:26) ANAPHYLAXIS levofloxacin [From Levaquin] Allergy (Verified 02/01/17 04:26) ANAPHYLAXIS NSAIDS (Non-Steroidal Anti-Inflamma Allergy (Verified 02/01/17 04:26) ANAPHYLAXIS shellfish derived Allergy (Verified 02/01/17 04:26) ANAPHYLAXIS tizanidine HCl [From Zanaflex] Allergy (Verified 02/01/17 04:26) ANAPHYLAXIS Home Medications: Home Meds Medication Instructions Recorded Confirmed QUEtiapine [SEROquel] 200 mg PO BID 12/30/16 01/05/17 clonazePAM [Klonopin] 1 mg PO TID 12/30/16 01/05/17 Gabapentin [Neurontin] 400 mg PO TID 01/06/17 01/06/17 Review of Systems - Physician Review All systems were reviewed & negative as marked: Yes - Review of Systems Constitutional: absent: Fevers Eyes: Normal ENT: Normal Respiratory: SOB, Wheezing. absent: Cough Cardiovascular: Chest Pain, HERNANDEZ Gastrointestinal: Normal. absent: Abdominal Pain, Diarrhea, Nausea, Vomiting Genitourinary Female: Normal. absent: Dysuria, Frequency, Hematuria, Urine Output Changes Musculoskeletal: Arthralgias (+left hip pain). absent: Back Pain, Neck Pain Skin: Normal. absent: Rash Neurological: Normal. absent: Headache, Dizziness Endocrine: Normal Hemo/Lymphatic: Normal Psychiatric: Normal Physical Exam Vital Signs Reviewed: Yes Vital Signs Temp Pulse Resp BP Pulse Ox 02/01/17 02:30 88 18 134/70 97 01/31/17 23:00 19 01/31/17 22:40 98.4 F 92 H 18 137/75 97 Temperature: Afebrile Blood Pressure: Normal Pulse: Regular Respiratory Rate: Normal Appearance: Positive for: Well-Appearing, Non-Toxic, Comfortable Pain Distress: None Mental Status: Positive for: Alert and Oriented X 3 - Systems Exam Head: Present: Atraumatic, Normocephalic Pupils: Present: PERRL Extroacular Muscles: Present: EOMI Conjunctiva: Present: Normal Mouth: Present: Moist Mucous Membranes Neck: Present: Normal Range of Motion Respiratory/Chest: Present: Clear to Auscultation, Good Air Exchange. No: Respiratory Distress, Accessory Muscle Use Cardiovascular: Present: Regular Rate and Rhythm, Normal S1, S2. No: Murmurs Abdomen: Present: Normal Bowel Sounds. No: Tenderness, Distention, Peritoneal Signs Back: Present: Normal Inspection Upper Extremity: Present: Normal Inspection. No: Cyanosis, Edema Lower Extremity: Present: Normal Inspection. No: Edema Neurological: Present: GCS=15, CN II-XII Intact, Speech Normal Skin: Present: Warm, Dry, Normal Color. No: Rashes Psychiatric: Present: Alert, Oriented x 3, Normal Insight, Normal Concentration Medical Decision Making ED Course and Treatment: 01/31/17 23:09 Impression: 42 year old female complaining of chest pain, shortness of breath/HERNANDEZ, and left hip pain. Plan: -- EKG -- Labs, cardiac enzymes, BNP, ABG -- XR Left Hip -- Urinalysis, urine drug screen -- Reassess and disposition Prior Visits: Notes and results from previous visits were reviewed. On 01/20/2017, pt was seen at [facility] Emergency department for chest pain radiating to her back. Pt was d/c home. Progress Notes: Reviewed EKG, NSR at [address]-segment elevations or depressions, no T-wave inversions, normal intervals. 02/01/17 03:01 Reviewed radiology, Chest X-ray shows no acute processes. - Lab Interpretations Lab Results: 02/01/17 01:40 02/01/17 01:40 Lab Results 02/01/17 01:40: D-Dimer, Quantitative 0.66 H 02/01/17 01:40: Sodium 141, Potassium 3.8, Chloride 109 H, Carbon Dioxide 25, Anion Gap 11, BUN 12, Creatinine 0.6 L, Est GFR ( Amer) > 60, Est GFR ( Non-Af Amer) > 60, Random Glucose 99, Calcium 8.6, Total Bilirubin 0.1 L, AST 48 H D, ALT 56, Alkaline Phosphatase 214 H D, Lactate Dehydrogenase 570, Total Creatine Kinase 259 H, CK-MB (CK-2) 3.2, CK-MB (CK-2) % Cancelled, Troponin I < 0.01, NT-Pro-B Natriuret Pep 254, Total Protein 6.3, Albumin 3.6, Globulin 2.7, Albumin/Globulin Ratio 1.3 02/01/17 01:40: WBC 3.8 L D, RBC 4.12, Hgb 10.7 L, Hct 33.8 L, MCV 82.0, MCH 26.0, MCHC 31.7, RDW 15.6 H, Plt Count 149, MPV 10.9, Gran % 49.7 L, Lymph % ( Auto) 34.4, Daniels % (Auto) 8.6 H, Eos % (Auto) 6.5 H, Baso % (Auto) 0.8, Gran # 1.91, Lymph # 1.3, Daniels # 0.3, Eos # 0.3, Baso # 0.03 01/31/17 23:49: Urine Opiates Screen Positive H, Urine Methadone Screen Negative , Ur Barbiturates Screen Positive H, Ur Phencyclidine Scrn Negative, Ur Amphetamines Screen Negative, U Benzodiazepines Scrn Negative, U Oth Cocaine Metabols Negative, U Cannabinoids Screen Negative 01/31/17 23:49: Urine Color Yellow, Urine Appearance Clear, Urine pH 6.5, Ur Specific [place] 1.015, Urine Protein Negative, Urine Glucose (UA) Negative, Urine Ketones Negative, Urine Blood Negative, Urine Nitrate Negative, Urine Bilirubin Negative, Urine Urobilinogen 0.2, Ur Leukocyte Esterase Negative, Urine HCG, Qual Negative 01/31/17 23:39: pCO2 37, pO2 111.0 H, HCO3 24.0, ABG pH 7.42, ABG Total CO2 25.1 , ABG O2 Saturation 98.0, ABG O2 Content 12.2 L, ABG Base Excess -0.3, ABG Hemoglobin 9.3 L, ABG Carboxyhemoglobin 6.8 H, POC ABG HHb (Measured) 1.9, ABG Methemoglobin 0.0, ABG O2 Capacity 12.4 L, Hgb O2 Saturation 91.3 L, FiO2 21.0 I have reviewed the lab results: Yes - RAD Interpretation Radiology Orders: 01/31/17 23:22 Hip Left [HIP MIN 2V W/ PELVIS LT] [RAD] Stat 02/01/17 02:12 CHEST PORTABLE [RAD] Stat Toll Testboard Worker: ED Physician - EKG Interpretation Interpreted by ED Physician: Yes Type: 12 lead EKG - Scribe Statement The provider has reviewed the documentation as recorded by the Christiano Tucker Provider Scribe Attestation: All medical record entries made by the Christiano were at my direction and personally dictated by me. I have reviewed the chart and agree that the record accurately reflects my personal performance of the history, physical exam, medical decision making, and the department course for this patient. I have also personally directed, reviewed, and agree with the discharge instructions and disposition. Disposition/Present on Arrival - Present on Arrival Any Indicators Present on Arrival: No History of DVT/PE: No History of Uncontrolled Diabetes: No Urinary Catheter: No History of Decub. Ulcer: No History Surgical Site Infection Following: None - Disposition Have Diagnosis and Disposition been Completed?: Yes Diagnosis: Chest pain Disposition: HOME/ ROUTINE Disposition Time: 06:15 Condition: GOOD Discharge Instructions (ExitCare): Chest Pain (ED) Forms: [employer] ([place])
[2017-01-31 23:42] LABS: ARTERIAL BLOOD GAS O2 CAPACITY 12.4 mL/dl (16-24); ARTERIAL BLOOD GAS O2 CONTENT 12.2 ML/dl (15-23); ARTERIAL BLOOD GAS PH 7.42 (7.35-7.45); ARTERIAL BLOOD HGB O2 SAT 91.3 % (95.0-98.0); CARBOXYHEMOGLOBIN 6.8 % (0.5-1.5); HHB 1.9 % (0-5)
[2017-02-01 00:29] LABS: PH,URINE 6.5 (4.7-8.0); URINE BILIRUBIN NEGATIVE (NEGATIVE); URINE BLOOD NEGATIVE (NEGATIVE); URINE GLUCOSE (UA) NEGATIVE (NEGATIVE); URINE KETONE NEGATIVE (NEGATIVE); URINE LEUKOCYTE ESTERASE NEGATIVE Leu/uL (NEGATIVE); URINE PROTEIN NEGATIVE mg/dL (<30 mg/dL); URINE UROBILINOGEN 0.2 E.U./dL (<1 E.U./dL)
[2017-02-01 00:57] LABS: URINE APPEARANCE CLEAR (CLEAR); URINE COLOR YELLOW (YELLOW)
[2017-02-01 01:54] LABS: BASO # 0.03 K/mm3 (0.0-2.0); BASO % 0.8 % (0.0-3.0); EOS # 0.3 (0.0-0.7); EOS % 6.5 % (1.5-5.0); GRAN # 1.91 (1.4-6.5); GRAN % 49.7 % (50.0-68.0); HEMATOCRIT 33.8 % (36.0-48.0); LYMPH # 1.3 (1.2-3.4); LYMPH % 34.4 % (22.0-35.0); MEAN CORPUSCULAR HGB CONC 31.7 g/dl (31.0-37.0); MEAN PLATELET VOLUME 10.9 fl (7.0-11.0); MONO # 0.3 (0.1-0.6); MONO % 8.6 % (1.0-6.0); RED CELL DISTRIBUTION WIDTH 15.6 % (11.5-14.5); WHITE BLOOD COUNT 3.8 10^3/ul (4.5-11.0)
[2017-02-01 02:10] LABS: ALB/GLOB RATIO 1.3 (1.1-1.8); ALKALINE PHOSPHATASE 214 U/L (38-126); ALT/SGPT 56 U/L (7-56); AST/SGOT 48 U/L (14-36); BILIRUBIN,TOTAL 0.1 mg/dL (0.2-1.3); BLOOD UREA NITROGEN 12 mg/dL (7-21); CALCIUM 8.6 mg/dL (8.4-10.5); CARBON DIOXIDE 25 mmol/L (21-33); CHLORIDE 109 mmol/L (98-107); GFR AFRICAN-AMERICAN > 60; GLUCOSE,RANDOM 99 mg/dL (70-110); POTASSIUM 3.8 mmol/L (3.6-5.0); SODIUM 141 mmol/L (132-148); TOTAL PROTEIN 6.3 g/dL (5.8-8.3)
[2017-02-01 02:35] LABS: TROPONIN I < 0.01 ng/mL
[2017-02-01 02:37] VITALS: RESP 18
[2017-02-01 06:37] VITALS: BP 130/72; PULSE 84; TEMP 97.9
--- NOTE | 2017-02-01 08:41 | RAD ---
HISTORY: cp COMPARISON: 01/06/2017 FINDINGS: LUNGS: No active pulmonary disease. PLEURA: No significant pleural effusion identified, no pneumothorax apparent. CARDIOVASCULAR: Normal. OSSEOUS STRUCTURES: No significant abnormalities. VISUALIZED UPPER ABDOMEN: Normal. OTHER FINDINGS: None. IMPRESSION: No active disease.
--- NOTE | 2017-02-01 22:18 | CARD ---
APPROVED REPORT EKG Measurement Heart [id number] <Conclusion> Normal sinus rhythm Normal ECG
== END 2017-02-01 06:37 | disposition home or self-care (01) ==
LOC: ED 22:23
DX: R07.9 Chest pain, unspecified (principal); F17.210 Nicotine dependence, cigarettes, uncomplicated; I25.2 Old myocardial infarction; M79.7 Fibromyalgia; Z86.73 Personal history of transient ischemic attack (TIA), and cerebral infarction without residual deficits